=== PATIENT | male | born 1995 | race Caucasian/White ===

== ENCOUNTER 2016-10-18 07:01 | Emergency (ER) | payer OTHER ==
[~2016-10-18] VITALS: Ht 185.4 cm; Wt 90.9 kg
[2016-10-18] MEDS ORDERED: LIDO2.5C15 (07:16)
[2016-10-18] MEDS ORDERED: LORA0.5T11 (07:16)
[2016-10-18] MEDS ORDERED: ONDA8TAB7 (07:16)
[2016-10-18] MEDS ORDERED: PANT40TA2 (07:16)
[2016-10-18] MEDS ORDERED: DEXA4TA (07:16)
[2016-10-18] MEDS ORDERED: OXYC-517 (07:16)
[2016-10-18] MEDS ORDERED: LORA10CA PO (07:16)
[2016-10-18] MEDS ORDERED: ONDANSETRON 4MG/2ML VIAL (J2405) IV ONE (07:30)
[2016-10-18] MEDS ORDERED: MORPHINE 4 MG/ML 1ML SYRINGE IV ONE (07:30)
[2016-10-18] MEDS ORDERED: KETOROLAC 30 MG/ML VIAL (J1885) IV ONE (10:00)
[2016-10-18 11:32] VITALS: BP 116/67
--- NOTE | 2016-10-18 12:14 | REP ---
Bilateral lower extremity deep vein duplex ultrasound: The deep veins demonstrate normal compression, normal Doppler color flow and normal Doppler waveforms with respiration augmentation from the popliteal veins to the common femoral veins bilaterally. Impression: There is no deep vein thrombus on the right or the left. Signed by Natanael Johnson MD 10/18/2016 09:39 A
[2016-10-19] MEDS ORDERED: IBUP-1022 PO (21:23)
[2016-10-19] MEDS ORDERED: MELA5TAB20 PO (21:23)
== END 2016-10-18 11:40 | disposition home or self-care (01) ==
LOC: EDBD 07:01 → M ED 08:26
DX: R20.2 Paresthesia of skin (principal); T37.95XA Adverse effect of unspecified systemic anti-infective and antiparasitic, initial encounter; C41.9 Malignant neoplasm of bone and articular cartilage, unspecified
CPT/HCPCS: 93970; 96374; 96375; 99284; J1885; J2405

== ENCOUNTER 2016-10-19 21:09 | Emergency (ER) | payer OTHER ==
[~2016-10-19] VITALS: Ht 185.4 cm; Wt 90.9 kg
[~2016-10-19 21:09] MED LIST: DEXA4TA; LIDO2.5C15; LORA0.5T11; LORA10CA PO; ONDA8TAB7; OXYC-517; PANT40TA2
[2016-10-19] MEDS ORDERED: MELA5TAB20 PO (21:23)
[2016-10-19] MEDS ORDERED: IBUP-1022 PO (21:23)
[2016-10-19] MEDS ORDERED: NS 1,000 ML IV ONE (21:45)
[2016-10-19 22:11] LABS: ANION GAP 9 MEQ/L (8-16); BLOOD UREA NITROGEN 17 MG/DL (7-18); CALCIUM LEVEL 7.3 MG/DL (8.5-10.1); CARBON DIOXIDE LEVEL 25 MEQ/L (21-32); CHLORIDE LEVEL 99 MEQ/L (98-107); CREATININE FOR GFR 0.78 MG/DL (0.70-1.30); GLUCOSE, FASTING 149 MG/DL (70-105); POTASSIUM SERUM 3.2 MEQ/L (3.5-5.1); SODIUM LEVEL 133 MEQ/L (136-145)
[2016-10-19] MEDS ORDERED: LIDOCAINE 4% CREAM 5GM (LMX4) TOP ONE (22:15)
[2016-10-19 22:27] LABS: ADD MANUAL DIFFER YES; DIFF SLIDE NUMBER 338; MEAN CORPUSCULAR HEMOGLOBIN 30.4 pg (27.0-33.0); MEAN CORPUSCULAR HGB CONC 36.1 g/dl (32.0-36.5); MEAN CORPUSCULAR VOLUME 84.4 fl (80.0-96.0); RED CELL DISTRIBUTION WIDTH 12.8 % (11.5-14.5); WHITE BLOOD COUNT 6.9 K/mm3 (4.0-10.0)
[2016-10-19 22:36] LABS: PLATELET COUNT, AUTOMATED 68 k/mm3 (150-450)
[2016-10-19] MEDS ORDERED: POTASSIUM CHLORIDE 10 MEQ SR TABLET PO ONE (22:45)
[2016-10-19 23:03] LABS: BANDS 12 % (< 11)
[2016-10-19 23:18] LABS: DOHLE BODIES 1+; TOXIC GRANULATION 1+
[2016-10-19] MEDS ORDERED: NS 1,000 ML IV SCH (23:45)
[2016-10-19] MEDS ORDERED: PIPERACILLIN/TAZOBACTAM SOD 3.375 GM in D5W MINI-BAG PLUS 50 ML IV ONE (23:45)
[2016-10-19] MEDS ORDERED: VANCOMYCIN HCL 1,000 MG, VIAL MATE ADAPTER 1 EACH in D5W 250 ML IV ONE (23:45)
[2016-10-20 00:53] VITALS: BP 114/68
--- NOTE | 2016-10-20 07:31 | REP ---
Clinical: Fever . Comparison: None . Findings: The mediastinum and cardiac silhouette are stable and within normal limits for portable technique. Xqhjwn-[id number]-Pbei with tip in the right atrium. The lung ford are clear without acute consolidation, effusion, or pneumothorax. Skeletal structures are intact. Impression: Normal portable chest x-ray Signed by Dominick Horowitz MD 10/20/2016 07:23 A
== END 2016-10-20 01:16 | disposition short-term general hospital (02) ==
LOC: M ED 21:09
DX: R50.9 Fever, unspecified (principal); T82.7XXA Infection and inflammatory reaction due to other cardiac and vascular devices, implants and grafts, initial encounter; C41.9 Malignant neoplasm of bone and articular cartilage, unspecified
CPT/HCPCS: 36415; 71010; 80048; 85025; 87040; 87070; 87077; 87186; 87205; 93041; 94760; 96374; 96375; 99285; J2543; J3370

== ENCOUNTER → 2016-11-04 | Outpatient (REF) | payer OTHER ==
[~2016-11-04] MED LIST changes: +IBUP-1022 PO; +KETO10TAB; +MELA5TAB20 PO; +OMEP20CA3 PO; +STOO100C PO
[2016-11-04 18:43] LABS: ERYTHROCYTE SEDIMENTATION RATE > 140 mm/hr (0-15)
[2016-11-04 18:44] LABS: ADD MORPHOLOGY? YES; BASO # 0.1 K/mm3 (0.0-0.2); BASO % 0.6 % (0.0-1.0); EOS # 0.1 K/mm3 (0.0-0.50); EOS % 0.5 % (0.0-3.0); LARGE UNSTAINED CELL # 0.2 K/mm3 (0.0-0.4); LARGE UNSTAINED CELL % 1.9 % (0.0-4.0); LYMPH # 2.4 K/mm3 (1.5-6.5); LYMPH % 17.2 % (24.0-44.0); MEAN CORPUSCULAR HEMOGLOBIN 28.8 pg (27.0-33.0); MEAN CORPUSCULAR HGB CONC 33.8 g/dl (32.0-36.5); MEAN CORPUSCULAR VOLUME 85.2 fl (80.0-96.0); MONO # 0.6 K/mm3 (0.0-0.8); NEUTROPHILS # 9.4 K/mm3 (1.8-7.7); NEUTROPHILS % 74.8 % (36.0-66.0); PLATELET COUNT, AUTOMATED 467 k/mm3 (150-450); RED CELL DISTRIBUTION WIDTH 16.1 % (11.5-14.5); WHITE BLOOD COUNT 12.6 K/mm3 (4.0-10.0)
[2016-11-04 18:46] LABS: ALBUMIN 2.3 GM/DL (3.2-5.2); ALBUMIN/GLOBULIN RATIO 0.43 (1.00-1.93); ALKALINE PHOSPHATASE 100 U/L (45-117); ALT/SGPT 57 U/L (12-78); ANION GAP 6 MEQ/L (8-16); AST/SGOT 38 U/L (15-37); BILIRUBIN,TOTAL 0.4 MG/DL (0.2-1.0); BLOOD UREA NITROGEN 15 MG/DL (7-18); CARBON DIOXIDE LEVEL 27 MEQ/L (21-32); CHLORIDE LEVEL 99 MEQ/L (98-107); CREATININE FOR GFR 0.85 MG/DL (0.70-1.30); GLUCOSE, FASTING 83 MG/DL (70-105); POTASSIUM SERUM 4.5 MEQ/L (3.5-5.1); SODIUM LEVEL 132 MEQ/L (136-145); TOTAL PROTEIN 7.7 GM/DL (6.4-8.2)
[2016-11-04 19:34] LABS: ANISOCYTOSIS 1+; POLYCHROMASIA 2+
== END ==
LOC: M SHH 17:04
PROVIDERS: ATTEND Internal Medicine
DX: T80.212A Local infection due to central venous catheter, initial encounter (principal)

== ENCOUNTER → 2016-11-08 | Outpatient (REF) | payer OTHER ==
[2016-11-08 16:09] LABS: ALBUMIN 2.2 GM/DL (3.2-5.2); ALKALINE PHOSPHATASE 80 U/L (45-117); ALT/SGPT 38 U/L (12-78); ANION GAP 8 MEQ/L (8-16); AST/SGOT 21 U/L (15-37); BILIRUBIN,TOTAL 0.2 MG/DL (0.2-1.0); BLOOD UREA NITROGEN 20 MG/DL (7-18); CALCIUM LEVEL 8.6 MG/DL (8.5-10.1); CARBON DIOXIDE LEVEL 27 MEQ/L (21-32); CHLORIDE LEVEL 105 MEQ/L (98-107); CREATININE FOR GFR 0.84 MG/DL (0.70-1.30); GLUCOSE, FASTING 89 MG/DL (70-105); SODIUM LEVEL 140 MEQ/L (136-145); TOTAL PROTEIN 6.6 GM/DL (6.4-8.2)
[2016-11-08 16:10] LABS: ADD MORPHOLOGY? YES; BASO % 0.6 % (0.0-1.0); EOS # 0.2 K/mm3 (0.0-0.50); EOS % 2.5 % (0.0-3.0); LARGE UNSTAINED CELL # 0.1 K/mm3 (0.0-0.4); LARGE UNSTAINED CELL % 1.5 % (0.0-4.0); LYMPH # 1.9 K/mm3 (1.5-6.5); LYMPH % 24.2 % (24.0-44.0); MEAN CORPUSCULAR HEMOGLOBIN 28.6 pg (27.0-33.0); MEAN CORPUSCULAR HGB CONC 33.5 g/dl (32.0-36.5); MEAN CORPUSCULAR VOLUME 85.5 fl (80.0-96.0); MONO # 0.4 K/mm3 (0.0-0.8); MONO % 5.3 % (0.0-5.0); NEUTROPHILS # 4.8 K/mm3 (1.8-7.7); PLATELET COUNT, AUTOMATED 364 k/mm3 (150-450); RED CELL DISTRIBUTION WIDTH 16.1 % (11.5-14.5); WHITE BLOOD COUNT 7.3 K/mm3 (4.0-10.0)
[2016-11-08 17:10] LABS: ERYTHROCYTE SEDIMENTATION RATE 126 mm/hr (0-15)
[2016-11-08 17:14] LABS: ANISOCYTOSIS 1+; POLYCHROMASIA 1+
== END ==
LOC: M SHH 15:36
PROVIDERS: ATTEND Internal Medicine Infectious Disease
DX: A49.01 Methicillin susceptible Staphylococcus aureus infection, unspecified site (principal); Z79.2 Long term (current) use of antibiotics

== ENCOUNTER → 2016-11-15 | Outpatient (REF) | payer OTHER ==
[2016-11-15 16:46] LABS: ALBUMIN 2.4 GM/DL (3.2-5.2); ALBUMIN/GLOBULIN RATIO 0.53 (1.00-1.93); ALKALINE PHOSPHATASE 82 U/L (45-117); ALT/SGPT 35 U/L (12-78); ANION GAP 5 MEQ/L (8-16); AST/SGOT 20 U/L (15-37); BILIRUBIN,TOTAL 0.2 MG/DL (0.2-1.0); BLOOD UREA NITROGEN 16 MG/DL (7-18); CALCIUM LEVEL 8.6 MG/DL (8.5-10.1); CARBON DIOXIDE LEVEL 27 MEQ/L (21-32); CHLORIDE LEVEL 105 MEQ/L (98-107); CREATININE FOR GFR 0.69 MG/DL (0.70-1.30); GLUCOSE, FASTING 95 MG/DL (70-105); POTASSIUM SERUM 3.9 MEQ/L (3.5-5.1); SODIUM LEVEL 137 MEQ/L (136-145); TOTAL PROTEIN 6.9 GM/DL (6.4-8.2)
[2016-11-15 17:11] LABS: MEAN CORPUSCULAR HEMOGLOBIN 27.9 pg (27.0-33.0); MEAN CORPUSCULAR HGB CONC 32.4 g/dl (32.0-36.5); MEAN CORPUSCULAR VOLUME 86.1 fl (80.0-96.0); PLATELET COUNT, AUTOMATED 495 k/mm3 (150-450); RED CELL DISTRIBUTION WIDTH 15.1 % (11.5-14.5); WHITE BLOOD COUNT 5.7 K/mm3 (4.0-10.0)
[2016-11-15 19:08] LABS: DIFF SLIDE NUMBER 314
[2016-11-15 19:18] LABS: BANDS 1 % (< 11); BASOPHILS 3 % (0-4); EOSINOPHILS 4 % (0-5)
[2016-11-15 19:19] LABS: ANISOCYTOSIS 1+; TOXIC GRANULATION 2+
[2016-11-15 22:07] LABS: ERYTHROCYTE SEDIMENTATION RATE 95 mm/hr (0-15)
== END ==
LOC: M SHH 16:07
PROVIDERS: ATTEND Internal Medicine Infectious Disease
DX: A49.01 Methicillin susceptible Staphylococcus aureus infection, unspecified site (principal); Z79.2 Long term (current) use of antibiotics; R78.81 Bacteremia

== ENCOUNTER → 2016-11-22 | Outpatient (REF) | payer OTHER ==
[2016-11-22 13:56] LABS: BASO % 1.1 % (0.0-1.0); EOS # 0.1 K/mm3 (0.0-0.50); EOS % 2.7 % (0.0-3.0); LARGE UNSTAINED CELL # 0.1 K/mm3 (0.0-0.4); LARGE UNSTAINED CELL % 2.8 % (0.0-4.0); LYMPH # 1.1 K/mm3 (1.5-6.5); LYMPH % 22.4 % (24.0-44.0); MEAN CORPUSCULAR HEMOGLOBIN 27.3 pg (27.0-33.0); MEAN CORPUSCULAR HGB CONC 32.5 g/dl (32.0-36.5); MONO # 0.4 K/mm3 (0.0-0.8); MONO % 8.1 % (0.0-5.0); PLATELET COUNT, AUTOMATED 472 k/mm3 (150-450); RED CELL DISTRIBUTION WIDTH 14.4 % (11.5-14.5); WHITE BLOOD COUNT 4.7 K/mm3 (4.0-10.0)
[2016-11-22 14:09] LABS: ALBUMIN 2.7 GM/DL (3.2-5.2); ALBUMIN/GLOBULIN RATIO 0.63 (1.00-1.93); ALKALINE PHOSPHATASE 88 U/L (45-117); ALT/SGPT 45 U/L (12-78); ANION GAP 9 MEQ/L (8-16); AST/SGOT 28 U/L (15-37); BILIRUBIN,TOTAL 0.3 MG/DL (0.2-1.0); BLOOD UREA NITROGEN 13 MG/DL (7-18); CALCIUM LEVEL 8.8 MG/DL (8.5-10.1); CARBON DIOXIDE LEVEL 26 MEQ/L (21-32); CHLORIDE LEVEL 107 MEQ/L (98-107); CREATININE FOR GFR 0.81 MG/DL (0.70-1.30); GLUCOSE, FASTING 88 MG/DL (70-105); POTASSIUM SERUM 3.9 MEQ/L (3.5-5.1); SODIUM LEVEL 142 MEQ/L (136-145)
[2016-11-22 14:25] LABS: ERYTHROCYTE SEDIMENTATION RATE 95 mm/hr (0-15)
== END ==
LOC: M SHH 13:48
PROVIDERS: ATTEND Internal Medicine Infectious Disease
DX: A49.01 Methicillin susceptible Staphylococcus aureus infection, unspecified site (principal)

== ENCOUNTER → 2016-11-29 | Outpatient (REF) | payer OTHER ==
[2016-11-29 15:27] LABS: ADD MORPHOLOGY? YES; BASO % 1.1 % (0.0-1.0); EOS # 0.1 K/mm3 (0.0-0.50); EOS % 1.6 % (0.0-3.0); LARGE UNSTAINED CELL # 0.2 K/mm3 (0.0-0.4); LARGE UNSTAINED CELL % 3.8 % (0.0-4.0); LYMPH # 1.2 K/mm3 (1.5-6.5); LYMPH % 29.3 % (24.0-44.0); MEAN CORPUSCULAR HEMOGLOBIN 27.1 pg (27.0-33.0); MEAN CORPUSCULAR HGB CONC 32.6 g/dl (32.0-36.5); MEAN CORPUSCULAR VOLUME 83.2 fl (80.0-96.0); MONO # 0.5 K/mm3 (0.0-0.8); MONO % 11.3 % (0.0-5.0); NEUTROPHILS # 2.2 K/mm3 (1.8-7.7); NEUTROPHILS % 52.9 % (36.0-66.0); PLATELET COUNT, AUTOMATED 429 k/mm3 (150-450); WHITE BLOOD COUNT 4.1 K/mm3 (4.0-10.0)
[2016-11-29 15:42] LABS: ALBUMIN 2.9 GM/DL (3.2-5.2); ALBUMIN/GLOBULIN RATIO 0.71 (1.00-1.93); ALKALINE PHOSPHATASE 96 U/L (45-117); ALT/SGPT 44 U/L (12-78); ANION GAP 6 MEQ/L (8-16); AST/SGOT 25 U/L (15-37); BILIRUBIN,TOTAL 0.5 MG/DL (0.2-1.0); BLOOD UREA NITROGEN 12 MG/DL (7-18); CARBON DIOXIDE LEVEL 29 MEQ/L (21-32); CHLORIDE LEVEL 105 MEQ/L (98-107); CREATININE FOR GFR 0.73 MG/DL (0.70-1.30); GLUCOSE, FASTING 68 MG/DL (70-105); POTASSIUM SERUM 3.8 MEQ/L (3.5-5.1); SODIUM LEVEL 140 MEQ/L (136-145)
[2016-11-29 15:50] LABS: ERYTHROCYTE SEDIMENTATION RATE 67 mm/hr (0-15)
[2016-11-29 16:47] LABS: POIKILOCYTOSIS 1+; TEAR DROP CELLS 2+
[2016-11-29 16:48] LABS: SCHISTOCYTES 1+
== END ==
LOC: M SHH 15:00
PROVIDERS: ATTEND Internal Medicine Infectious Disease
DX: A49.01 Methicillin susceptible Staphylococcus aureus infection, unspecified site (principal); Z79.2 Long term (current) use of antibiotics

== ENCOUNTER 2016-12-16 00:07 | Emergency (ER) | payer OTHER ==
[~2016-12-16] VITALS: Ht 182.9 cm; Wt 90.0 kg
[~2016-12-16 00:07] MED LIST changes: -KETO10TAB; -OMEP20CA3 PO; -STOO100C PO
[2016-12-16] MEDS ORDERED: KETO10TAB (00:18)
[2016-12-16] MEDS ORDERED: STOO100C PO (00:18)
[2016-12-16] MEDS ORDERED: OMEP20CA3 PO (00:21)
[2016-12-16] MEDS ORDERED: ONDANSETRON 4MG/2ML VIAL (J2405) IV ONE (01:00)
[2016-12-16] MEDS ORDERED: ACETAMINOPHEN TAB 650MG DOSE (2X325MG) PO ONE (01:00)
[2016-12-16] MEDS ORDERED: MORPHINE 4 MG/ML 1ML SYRINGE IV PRN (01:00)
[2016-12-16 01:15] LABS: ALBUMIN 2.9 GM/DL (3.2-5.2); ALBUMIN/GLOBULIN RATIO 0.64 (1.00-1.93); ALKALINE PHOSPHATASE 165 U/L (45-117); ALT/SGPT 49 U/L (12-78); ANION GAP 7 MEQ/L (8-16); AST/SGOT 28 U/L (15-37); BASO % 0.4 % (0.0-1.0); BILIRUBIN,DIRECT 0.2 MG/DL (0.0-0.2); BILIRUBIN,TOTAL 0.6 MG/DL (0.2-1.0); BLOOD UREA NITROGEN 10 MG/DL (7-18); CARBON DIOXIDE LEVEL 27 MEQ/L (21-32); CHLORIDE LEVEL 100 MEQ/L (98-107); CREATININE FOR GFR 0.92 MG/DL (0.70-1.30); EOS % 0.1 % (0.0-3.0); GLUCOSE, FASTING 122 MG/DL (70-105); LARGE UNSTAINED CELL # 0.2 K/mm3 (0.0-0.4); LARGE UNSTAINED CELL % 2.3 % (0.0-4.0); LYMPH # 0.8 K/mm3 (1.5-6.5); LYMPH % 8.3 % (24.0-44.0); MEAN CORPUSCULAR HEMOGLOBIN 25.8 pg (27.0-33.0); MEAN CORPUSCULAR HGB CONC 33.3 g/dl (32.0-36.5); MEAN CORPUSCULAR VOLUME 77.4 fl (80.0-96.0); MONO # 0.5 K/mm3 (0.0-0.8); MONO % 5.4 % (0.0-5.0); NEUTROPHILS # 8.3 K/mm3 (1.8-7.7); NEUTROPHILS % 83.5 % (36.0-66.0); PLATELET COUNT, AUTOMATED 259 k/mm3 (150-450); POTASSIUM SERUM 3.1 MEQ/L (3.5-5.1); RED CELL DISTRIBUTION WIDTH 14.6 % (11.5-14.5); SODIUM LEVEL 134 MEQ/L (136-145); TOTAL PROTEIN 7.4 GM/DL (6.4-8.2)
[2016-12-16] MEDS ORDERED: KETOROLAC 30 MG/ML VIAL (J1885) IV ONE (02:15)
[2016-12-16 02:35] VITALS: BP 117/64
[2016-12-16] MEDS ORDERED: NS 1,000 ML IV ONE (03:30)
--- NOTE | 2016-12-16 05:10 | REPUSA ---
CLINICAL HISTORY: Pain. COMMENTS: 3.1 cm nonossifying fibroma of the distal aspect of the femoral diaphysis. The soft tissues are normal. There is no mass or abnormal calcification. There is no fracture. There is no lytic or blastic lesion. 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 Benign incidental chronic finding. No fracture. Thank you for your kind referral of this patient.
[2016-12-16] MEDS ORDERED: OXYCODONE/APAP 5MG/325MG(BULK FOR ED) 1 TABLET PO ONE (06:00)
--- NOTE | 2016-12-16 07:57 | REP ---
Chest x-ray: Two views. History: Systemic inflammatory response syndrome . Comparison study: October 19, 2016 . Findings: The lungs are well inflated and free of infiltrate. The pleural angles are sharp. The heart size is normal. Pulmonary vasculature is not increased. No significant bony abnormality is seen. EKG monitoring electrodes overlie the chest. The Sjezgp-F-Zrmt catheter has been removed since the prior study. Impression: Negative chest x-ray. Signed by Baldomero Tao MD 12/16/2016 07:48 A
--- NOTE | 2016-12-16 08:06 | REP ---
Right TIB-fib series: Four views. History: Pain. Findings: Four views of the right tibia and fibula demonstrate normal bones, joints, and soft tissues. No fracture or other acute bony abnormality. Impression: Negative right TIB-fib series. Signed by Baldomero Tao MD 12/16/2016 08:57 A
== END 2016-12-16 07:02 | disposition home or self-care (01) ==
LOC: EDBD 00:07 → M ED 00:07
DX: M79.604 Pain in right leg (principal)
CPT/HCPCS: 71020; 73552; 73590; 80048; 80076; 81001; 83605; 85025; 87040; 87077; 87086; 87186; 93041; 94760; 96374; 96375; 99285; J1885; J2405

== ENCOUNTER 2017-05-17 20:43 | Emergency (ER) | payer OTHER ==
[2017-05-17] MEDS: LORazepam 2 MG/ML VIAL (J2060) IV (21:13)
[2017-05-17] MEDS: ONDANSETRON 4MG/2ML VIAL (J2405) IV (21:15)
[2017-05-17] MEDS: MORPHINE 4 MG/ML 1ML SYRINGE IV ×2 (21:35→22:02)
[2017-05-17] MEDS: MORPHINE 30 MG TAB **MSIR PO (23:47)
[2017-05-18] MEDS: METHOCARBAMOL 1,000 MG/10 ML VIAL (J2800) IV (00:30)
== END 2017-05-18 02:12 | disposition home or self-care (01) ==
LOC: M ED 05-18 02:12
DX: M54.2 Cervicalgia (principal); C41.2 Malignant neoplasm of vertebral column; F33.9 Major depressive disorder, recurrent, unspecified; Z79.899 Other long term (current) drug therapy
CPT/HCPCS: J2405

== ENCOUNTER → 2017-09-05 | Outpatient (REF) | payer OTHER ==
[2017-09-05 19:25] LABS: BASO # 0.1 10^3/uL (0.0-0.2); BASO % 1.1 % (0.0-1.0); EOS % 0.3 % (0.0-3.0); HEMATOCRIT 25.2 % (42.0-52.0); HEMOGLOBIN 7.7 g/dl (13.5-17.5); IMMATURE GRANULOCYTE % 0.6 % (0-3.0); LYMPH # 1.2 10^3/uL (1.5-6.5); LYMPH % 15.4 % (24.0-44.0); MEAN CORPUSCULAR HEMOGLOBIN 25.3 pg (27.0-33.0); MEAN CORPUSCULAR HGB CONC 30.6 g/dl (32.0-36.5); MEAN CORPUSCULAR VOLUME 82.9 fl (80.0-96.0); MONO # 0.9 10^3/uL (0.0-0.8); MONO % 10.7 % (0.0-5.0); NEUTROPHILS # 5.7 10^3/uL (1.8-7.7); NEUTROPHILS % 71.9 % (36.0-66.0); PLATELET COUNT, AUTOMATED 683 10^3/uL (150-450); RED BLOOD COUNT 3.04 10^6/uL (4.30-6.10); RED CELL DISTRIBUTION WIDTH 16.6 % (11.5-14.5)
[2017-09-05 19:44] LABS: ALBUMIN 2.7 GM/DL (3.2-5.2); ALBUMIN/GLOBULIN RATIO 0.49 (1.00-1.93); ALKALINE PHOSPHATASE 137 U/L (45-117); ALT/SGPT 17 U/L (12-78); ANION GAP 7 MEQ/L (8-16); AST/SGOT 14 U/L (7-37); BILIRUBIN,TOTAL 0.2 MG/DL (0.2-1.0); BLOOD UREA NITROGEN 9 MG/DL (7-18); C REACTIVE PROTEIN QUANTITATIV 6.44 MG/DL (0.00-0.30); CALCIUM LEVEL 8.8 MG/DL (8.5-10.1); CARBON DIOXIDE LEVEL 28 MEQ/L (21-32); CHLORIDE LEVEL 103 MEQ/L (98-107); CREATININE FOR GFR 0.69 MG/DL (0.70-1.30); GLOMERULAR FILTRATION RATE > 60.0 (>60); GLUCOSE, FASTING 79 MG/DL (70-100); POTASSIUM SERUM 4.3 MEQ/L (3.5-5.1); SODIUM LEVEL 138 MEQ/L (136-145); TOTAL PROTEIN 8.2 GM/DL (6.4-8.2)
[2017-09-05 20:13] LABS: ERYTHROCYTE SEDIMENTATION RATE > 140 mm/hr (0-15)
== END ==
LOC: M LAB REF 18:26
DX: M00.9 Pyogenic arthritis, unspecified (principal); A49.01 Methicillin susceptible Staphylococcus aureus infection, unspecified site; Z79.2 Long term (current) use of antibiotics
CPT/HCPCS: 80053

== ENCOUNTER → 2017-09-20 | Outpatient (REF) | payer OTHER ==
[2017-09-20 13:36] LABS: BASO # 0.1 10^3/uL (0.0-0.2); BASO % 0.8 % (0.0-1.0); EOS # 0.3 10^3/uL (0.0-0.50); EOS % 4.4 % (0.0-3.0); HEMATOCRIT 29.4 % (42.0-52.0); HEMOGLOBIN 8.9 g/dl (13.5-17.5); IMMATURE GRANULOCYTE % 0.3 % (0-3.0); LYMPH # 1.5 10^3/uL (1.5-6.5); LYMPH % 24.9 % (24.0-44.0); MEAN CORPUSCULAR HEMOGLOBIN 25.8 pg (27.0-33.0); MEAN CORPUSCULAR HGB CONC 30.3 g/dl (32.0-36.5); MEAN CORPUSCULAR VOLUME 85.2 fl (80.0-96.0); MONO # 0.5 10^3/uL (0.0-0.8); MONO % 7.6 % (0.0-5.0); NEUTROPHILS # 3.7 10^3/uL (1.8-7.7); PLATELET COUNT, AUTOMATED 436 10^3/uL (150-450); RED BLOOD COUNT 3.45 10^6/uL (4.30-6.10); RED CELL DISTRIBUTION WIDTH 16.4 % (11.5-14.5); WHITE BLOOD COUNT 5.9 10^3/uL (4.0-10.0)
[2017-09-20 13:50] LABS: ALBUMIN 3.1 GM/DL (3.2-5.2); ALBUMIN/GLOBULIN RATIO 0.61 (1.00-1.93); ALKALINE PHOSPHATASE 142 U/L (45-117); ALT/SGPT 12 U/L (12-78); ANION GAP 9 MEQ/L (8-16); AST/SGOT 20 U/L (7-37); BILIRUBIN,TOTAL 0.3 MG/DL (0.2-1.0); BLOOD UREA NITROGEN 11 MG/DL (7-18); C REACTIVE PROTEIN QUANTITATIV 3.27 MG/DL (0.00-0.30); CALCIUM LEVEL 9.1 MG/DL (8.5-10.1); CARBON DIOXIDE LEVEL 27 MEQ/L (21-32); CHLORIDE LEVEL 102 MEQ/L (98-107); CREATININE FOR GFR 1.42 MG/DL (0.70-1.30); GLOMERULAR FILTRATION RATE > 60.0 (>60); GLUCOSE, FASTING 77 MG/DL (70-100); SODIUM LEVEL 138 MEQ/L (136-145); TOTAL PROTEIN 8.2 GM/DL (6.4-8.2)
[2017-09-20 14:28] LABS: ERYTHROCYTE SEDIMENTATION RATE 84 mm/hr (0-15)
== END ==
LOC: M LAB REF 13:19
DX: Z00.00 Encounter for general adult medical examination without abnormal findings (principal)
CPT/HCPCS: 80053

== ENCOUNTER → 2017-09-23 | Outpatient (REF) | payer OTHER ==
[2017-09-23 12:49] LABS: ALBUMIN 3.2 GM/DL (3.2-5.2); ALBUMIN/GLOBULIN RATIO 0.63 (1.00-1.93); ALKALINE PHOSPHATASE 139 U/L (45-117); ALT/SGPT 17 U/L (12-78); ANION GAP 7 MEQ/L (8-16); AST/SGOT 16 U/L (7-37); BILIRUBIN,TOTAL 0.3 MG/DL (0.2-1.0); BLOOD UREA NITROGEN 13 MG/DL (7-18); CALCIUM LEVEL 9.5 MG/DL (8.5-10.1); CARBON DIOXIDE LEVEL 29 MEQ/L (21-32); CHLORIDE LEVEL 103 MEQ/L (98-107); CREATININE FOR GFR 0.64 MG/DL (0.70-1.30); GLUCOSE, FASTING 86 MG/DL (70-100); POTASSIUM SERUM 4.2 MEQ/L (3.5-5.1); SODIUM LEVEL 139 MEQ/L (136-145); TOTAL PROTEIN 8.3 GM/DL (6.4-8.2)
[2017-09-23 12:51] LABS: GLOMERULAR FILTRATION RATE > 60.0 (>60)
== END ==
LOC: M SHH 12:09
DX: M00.9 Pyogenic arthritis, unspecified (principal); A49.01 Methicillin susceptible Staphylococcus aureus infection, unspecified site; Z79.2 Long term (current) use of antibiotics

== ENCOUNTER → 2017-09-27 | Outpatient (REF) | payer OTHER ==
[2017-09-27 13:43] LABS: BASO % 0.7 % (0.0-1.0); EOS # 0.2 10^3/uL (0.0-0.50); EOS % 4.8 % (0.0-3.0); HEMATOCRIT 30.7 % (42.0-52.0); HEMOGLOBIN 9.2 g/dl (13.5-17.5); IMMATURE GRANULOCYTE % 0.2 % (0-3.0); LYMPH # 1.1 10^3/uL (1.5-6.5); LYMPH % 27.2 % (24.0-44.0); MEAN CORPUSCULAR HEMOGLOBIN 25.2 pg (27.0-33.0); MEAN CORPUSCULAR VOLUME 84.1 fl (80.0-96.0); MONO # 0.4 10^3/uL (0.0-0.8); MONO % 9.6 % (0.0-5.0); NEUTROPHILS # 2.4 10^3/uL (1.8-7.7); NEUTROPHILS % 57.5 % (36.0-66.0); PLATELET COUNT, AUTOMATED 396 10^3/uL (150-450); RED BLOOD COUNT 3.65 10^6/uL (4.30-6.10); RED CELL DISTRIBUTION WIDTH 15.6 % (11.5-14.5); WHITE BLOOD COUNT 4.2 10^3/uL (4.0-10.0)
[2017-09-27 14:16] LABS: ALBUMIN 3.3 GM/DL (3.2-5.2); ALKALINE PHOSPHATASE 135 U/L (45-117); ALT/SGPT 13 U/L (12-78); ANION GAP 7 MEQ/L (8-16); AST/SGOT 12 U/L (7-37); BILIRUBIN,TOTAL 0.2 MG/DL (0.2-1.0); BLOOD UREA NITROGEN 10 MG/DL (7-18); C REACTIVE PROTEIN QUANTITATIV 2.08 MG/DL (0.00-0.30); CALCIUM LEVEL 9.5 MG/DL (8.5-10.1); CARBON DIOXIDE LEVEL 28 MEQ/L (21-32); CHLORIDE LEVEL 106 MEQ/L (98-107); CREATININE FOR GFR 0.64 MG/DL (0.70-1.30); GLOMERULAR FILTRATION RATE > 60.0 (>60); GLUCOSE, FASTING 85 MG/DL (70-100); POTASSIUM SERUM 3.7 MEQ/L (3.5-5.1); SODIUM LEVEL 141 MEQ/L (136-145)
[2017-09-27 15:27] LABS: ERYTHROCYTE SEDIMENTATION RATE 62 mm/hr (0-15)
== END ==
LOC: M SHH 13:18
DX: Z00.00 Encounter for general adult medical examination without abnormal findings (principal)

== ENCOUNTER 2017-09-29 08:33 | Emergency (ER) | payer OTHER ==
[2017-09-29 11:05] LABS: BASO % 0.6 % (0.0-1.0); EOS # 0.2 10^3/uL (0.0-0.50); EOS % 3.7 % (0.0-3.0); HEMATOCRIT 28.6 % (42.0-52.0); HEMOGLOBIN 8.8 g/dl (13.5-17.5); IMMATURE GRANULOCYTE % 0.2 % (0-3.0); LYMPH # 1.5 10^3/uL (1.5-6.5); LYMPH % 30.3 % (24.0-44.0); MEAN CORPUSCULAR HGB CONC 30.8 g/dl (32.0-36.5); MEAN CORPUSCULAR VOLUME 84.4 fl (80.0-96.0); MONO # 0.4 10^3/uL (0.0-0.8); MONO % 8.1 % (0.0-5.0); NEUTROPHILS # 2.9 10^3/uL (1.8-7.7); NEUTROPHILS % 57.1 % (36.0-66.0); PLATELET COUNT, AUTOMATED 319 10^3/uL (150-450); RED BLOOD COUNT 3.39 10^6/uL (4.30-6.10); RED CELL DISTRIBUTION WIDTH 15.5 % (11.5-14.5); WHITE BLOOD COUNT 5.1 10^3/uL (4.0-10.0)
[2017-09-29 11:38] LABS: ALBUMIN 3.1 GM/DL (3.2-5.2); ALBUMIN/GLOBULIN RATIO 0.74 (1.00-1.93); ALKALINE PHOSPHATASE 127 U/L (45-117); ALT/SGPT 10 U/L (12-78); ANION GAP 6 MEQ/L (8-16); AST/SGOT 11 U/L (7-37); BILIRUBIN,DIRECT < 0.1 MG/DL (0.0-0.2); BILIRUBIN,TOTAL 0.2 MG/DL (0.2-1.0); BLOOD UREA NITROGEN 13 MG/DL (7-18); CALCIUM LEVEL 8.9 MG/DL (8.5-10.1); CARBON DIOXIDE LEVEL 30 MEQ/L (21-32); CHLORIDE LEVEL 105 MEQ/L (98-107); CREATININE FOR GFR 0.79 MG/DL (0.70-1.30); GLOMERULAR FILTRATION RATE > 60.0 (>60); GLUCOSE, FASTING 85 MG/DL (70-100); POTASSIUM SERUM 3.9 MEQ/L (3.5-5.1); SODIUM LEVEL 141 MEQ/L (136-145); TOTAL PROTEIN 7.3 GM/DL (6.4-8.2)
[2017-09-29 11:54] LABS: C REACTIVE PROTEIN QUANTITATIV 1.11 MG/DL (0.00-0.30)
[2017-09-29] MEDS: MORPHINE 4 MG/ML 1ML VIAL/SYRINGE (J2270) IV ×3 (12:06→16:43)
[2017-09-29 12:31] LABS: ERYTHROCYTE SEDIMENTATION RATE 59 mm/hr (0-15)
== END 2017-09-29 16:52 | disposition short-term general hospital (02) ==
LOC: M ED 08:33
DX: M25.552 Pain in left hip (principal); M25.562 Pain in left knee; Z85.831 Personal history of malignant neoplasm of soft tissue; Z79.899 Other long term (current) drug therapy
CPT/HCPCS: J2270

== ENCOUNTER → 2017-12-06 | Outpatient (CLI) | payer OTHER ==
[2017-12-06 11:32] LABS: BASO % 0.2 % (0.0-1.0); EOS # 0.1 10^3/uL (0.0-0.50); EOS % 1.9 % (0.0-3.0); HEMATOCRIT 37.6 % (42.0-52.0); HEMOGLOBIN 12.3 g/dl (13.5-17.5); IMMATURE GRANULOCYTE % 0.2 % (0-3.0); LYMPH # 1.2 10^3/uL (1.5-6.5); LYMPH % 26.9 % (24.0-44.0); MEAN CORPUSCULAR HEMOGLOBIN 26.5 pg (27.0-33.0); MEAN CORPUSCULAR HGB CONC 32.7 g/dl (32.0-36.5); MEAN CORPUSCULAR VOLUME 80.9 fl (80.0-96.0); MONO # 0.5 10^3/uL (0.0-0.8); NEUTROPHILS # 2.5 10^3/uL (1.8-7.7); NEUTROPHILS % 58.8 % (36.0-66.0); PLATELET COUNT, AUTOMATED 368 10^3/uL (150-450); RED BLOOD COUNT 4.65 10^6/uL (4.30-6.10); RED CELL DISTRIBUTION WIDTH 14.3 % (11.5-14.5); WHITE BLOOD COUNT 4.3 10^3/uL (4.0-10.0)
[2017-12-06 11:50] LABS: ALBUMIN 3.6 GM/DL (3.2-5.2); ALBUMIN/GLOBULIN RATIO 0.88 (1.00-1.93); ALKALINE PHOSPHATASE 160 U/L (45-117); ALT/SGPT 27 U/L (12-78); ANION GAP 5 MEQ/L (8-16); AST/SGOT 17 U/L (7-37); BILIRUBIN,TOTAL 0.7 MG/DL (0.2-1.0); BLOOD UREA NITROGEN 16 MG/DL (7-18); C REACTIVE PROTEIN QUANTITATIV 5.17 MG/DL (0.00-0.30); CALCIUM LEVEL 9.3 MG/DL (8.5-10.1); CARBON DIOXIDE LEVEL 31 MEQ/L (21-32); CHLORIDE LEVEL 105 MEQ/L (98-107); CREATININE FOR GFR 0.85 MG/DL (0.70-1.30); GLOMERULAR FILTRATION RATE > 60.0 (>60); GLUCOSE, FASTING 77 MG/DL (70-100); POTASSIUM SERUM 3.6 MEQ/L (3.5-5.1); SODIUM LEVEL 141 MEQ/L (136-145); TOTAL PROTEIN 7.7 GM/DL (6.4-8.2)
[2017-12-06 12:06] LABS: ERYTHROCYTE SEDIMENTATION RATE 33 mm/hr (0-15)
== END ==
LOC: M LAB 10:59
DX: A49.01 Methicillin susceptible Staphylococcus aureus infection, unspecified site (principal); M00.9 Pyogenic arthritis, unspecified

== ENCOUNTER 2018-02-09 10:55 | Emergency (ER) | payer OTHER ==
[2018-02-09] MEDS: NS 1,000 ML IV (12:01)
[2018-02-09] MEDS: fentaNYL 100 MCG/2 ML INJECTION (J3010) IV (12:01)
[2018-02-09 12:21] LABS: EOS % 4.3 % (0.0-3.0); HEMATOCRIT 29.4 % (42.0-52.0); LYMPH # 0.4 10^3/uL (1.5-6.5); LYMPH % 59.4 % (24.0-44.0); MEAN CORPUSCULAR HEMOGLOBIN 27.2 pg (27.0-33.0); MEAN CORPUSCULAR VOLUME 79.9 fl (80.0-96.0); MONO # 0.1 10^3/uL (0.0-0.8); NEUTROPHILS % 23.3 % (36.0-66.0); RED BLOOD COUNT 3.68 10^6/uL (4.30-6.10); RED CELL DISTRIBUTION WIDTH 12.4 % (11.5-14.5)
[2018-02-09 12:36] LABS: NEUTROPHILS # 0.2 10^3/uL (1.8-7.7); PLATELET COUNT, AUTOMATED 70 10^3/uL (150-450); POS COUNT POS FLAG; POSITIVE DIFF POS FLAG; POSITIVE MORPH POS FLAG; WHITE BLOOD COUNT 0.7 10^3/uL (4.0-10.0)
[2018-02-09 12:37] LABS: IMMATURE PLATELET FRACTION % 4.6 % (0.0-10.9)
[2018-02-09 12:46] LABS: ANION GAP 7 MEQ/L (8-16); BLOOD UREA NITROGEN 22 MG/DL (7-18); CALCIUM LEVEL 8.4 MG/DL (8.5-10.1); CARBON DIOXIDE LEVEL 27 MEQ/L (21-32); CHLORIDE LEVEL 107 MEQ/L (98-107); CREATININE FOR GFR 0.61 MG/DL (0.70-1.30); GLOMERULAR FILTRATION RATE > 60.0 (>60); GLUCOSE, FASTING 100 MG/DL (70-100); POTASSIUM SERUM 3.9 MEQ/L (3.5-5.1); SODIUM LEVEL 141 MEQ/L (136-145)
== END 2018-02-09 13:57 | disposition home or self-care (01) ==
LOC: M ED 10:55
DX: M25.551 Pain in right hip (principal); M25.552 Pain in left hip; M16.0 Bilateral primary osteoarthritis of hip; K64.9 Unspecified hemorrhoids; Z85.830 Personal history of malignant neoplasm of bone; Z98.890 Other specified postprocedural states; Z91.048 Other nonmedicinal substance allergy status; Z79.899 Other long term (current) drug therapy; Z92.21 Personal history of antineoplastic chemotherapy
CPT/HCPCS: J3010

== ENCOUNTER → 2019-10-02 | Outpatient (REF) | payer BC ==
[~2019-10-02] MED LIST changes: +ATIV1TAB10 PO; +BACL1TAB9 PO; +CEFAD50CA PO; +CLAR10CA3 PO; +DILA8TAB5 PO; +DULO30CA9 PO; +IBUP80TA PO; +KETO10TAB; +KETO10TAB PO; -LORA0.5T11; +LORA0.5T5; +MM S100C PO; +MORP15TA2 PO; +NEUR300C PO; +OMEP1CAP73 PO; +ONDA8TAB10; -ONDA8TAB7; +OXYC1SOL3 PO; +OXYC1TAB23 PO; -PANT40TA2; +PANT40TA3; +PANT40TA3 PO; +PARO20TA3 PO; +PARO30TA65 PO; +PERC5TAB12 PO; +PROBCAP14 PO; +TIZA4CAP PO; +TRAM50TA2 PO; +TYLE325T5 PO
[2019-10-02 13:17] LABS: BASO % 0.5 % (0.0-1.0); EOS # 0.1 10^3/uL (0.0-0.5); EOS % 1.8 % (0.0-3.0); HEMATOCRIT 42.9 % (42.0-52.0); HEMOGLOBIN 14.7 g/dl (13.5-17.5); LYMPH # 1.4 10^3/uL (1.5-5.0); LYMPH % 32.8 % (24.0-44.0); MEAN CORPUSCULAR HEMOGLOBIN 28.7 pg (27.0-33.0); MEAN CORPUSCULAR HGB CONC 34.3 g/dl (32.0-36.5); MEAN CORPUSCULAR VOLUME 83.8 fl (80.0-96.0); MONO # 0.4 10^3/uL (0.0-0.8); MONO % 8.3 % (0.0-5.0); NEUTROPHILS # 2.5 10^3/uL (1.5-8.5); NEUTROPHILS % 56.4 % (36.0-66.0); PLATELET COUNT, AUTOMATED 304 10^3/uL (150-450); RED BLOOD COUNT 5.12 10^6/uL (4.30-6.10); WHITE BLOOD COUNT 4.4 10^3/uL (4.0-10.0)
[2019-10-02 13:45] LABS: ALBUMIN 3.9 GM/DL (3.2-5.2); ALT/SGPT 31 U/L (12-78); BILIRUBIN,TOTAL 0.8 MG/DL (0.2-1.0); BLOOD UREA NITROGEN 19 MG/DL (7-18); CALCIUM LEVEL 9.1 MG/DL (8.5-10.1); CARBON DIOXIDE LEVEL 26 MEQ/L (21-32); CHLORIDE LEVEL 108 MEQ/L (98-107); CREATININE FOR GFR 0.73 MG/DL (0.70-1.30); GLOMERULAR FILTRATION RATE > 60.0 (>60); GLUCOSE, FASTING 97 MG/DL (70-100); POTASSIUM SERUM 4.1 MEQ/L (3.5-5.1); SODIUM LEVEL 140 MEQ/L (136-145); TOTAL PROTEIN 7.2 GM/DL (6.4-8.2)
== END ==
LOC: M LABDRWAD 12:35
PROVIDERS: ATTEND Physician Assistant Medical
DX: C41.2 Malignant neoplasm of vertebral column (principal)

== ENCOUNTER → 2020-03-25 | Outpatient (CLI) | payer BC ==
[~2020-03-25] MED LIST changes: +PANT40TA29; +PANT40TA29 PO; -PANT40TA3; -PANT40TA3 PO
[2020-03-25 16:30] LABS: BASO % 0.4 % (0.0-1.0); EOS # 0.1 10^3/uL (0.0-0.5); EOS % 1.8 % (0.0-3.0); HEMATOCRIT 40.8 % (42.0-52.0); HEMOGLOBIN 13.5 g/dl (13.5-17.5); LYMPH % 36.2 % (24.0-44.0); MEAN CORPUSCULAR HGB CONC 33.1 g/dl (32.0-36.5); MEAN CORPUSCULAR VOLUME 84.6 fl (80.0-96.0); MONO # 0.5 10^3/uL (0.0-0.8); MONO % 9.1 % (0.0-5.0); NEUTROPHILS # 2.9 10^3/uL (1.5-8.5); NEUTROPHILS % 52.3 % (36.0-66.0); PLATELET COUNT, AUTOMATED 271 10^3/uL (150-450); RED BLOOD COUNT 4.82 10^6/uL (4.30-6.10); WHITE BLOOD COUNT 5.5 10^3/uL (4.0-10.0)
[2020-03-25 16:49] LABS: ALBUMIN 3.9 GM/DL (3.2-5.2); ALT/SGPT 18 U/L (12-78); BILIRUBIN,TOTAL 0.8 MG/DL (0.2-1.0); BLOOD UREA NITROGEN 17 MG/DL (7-18); CALCIUM LEVEL 9.2 MG/DL (8.5-10.1); CARBON DIOXIDE LEVEL 26 MEQ/L (21-32); CHLORIDE LEVEL 111 MEQ/L (98-107); CREATININE FOR GFR 0.91 MG/DL (0.70-1.30); GLOMERULAR FILTRATION RATE > 60.0 (>60); GLUCOSE, FASTING 91 MG/DL (70-100); POTASSIUM SERUM 3.8 MEQ/L (3.5-5.1); SODIUM LEVEL 142 MEQ/L (136-145); TOTAL PROTEIN 7.1 GM/DL (6.4-8.2)
== END ==
LOC: M LAB 15:50
PROVIDERS: ATTEND Internal Medicine Hematology & Oncology
DX: Z85.830 Personal history of malignant neoplasm of bone (principal)

== ENCOUNTER 2020-05-11 20:00 | Emergency (ER) | payer BC ==
[~2020-05-11] VITALS: Ht 188 cm; Wt 100.1 kg
[~2020-05-11 20:00] MED LIST changes: +CEFA500C2 PO; -CEFAD50CA PO
[2020-05-11 20:01] VITALS: BP 145/94
--- OUTSIDE RECORDS SUMMARY | 2020-05-11 20:09 | CCD | Summary of Care ---
Author Author [facility] Organization [facility] Address Unknown Phone Unavailable Care Team Providers Care E Commerce Manager Name Role Phone Destin Sargent MD PCP Reason for Referral * Diagnostic Radiology (Routine) Referred By Contact Referred To Contact Status Reason Specialty Diagnoses / Procedures Salbador Rodriguez MD [address] [place] [address] Email: [email or web address] Open Radiology Diagnoses Whiteside's sarcoma P rocedures CT Soft Tissue Neck with Contrast * Diagnostic Radiology (Routine) Referred By Contact Referred To Contact Status Reason Specialty Diagnoses / Procedures Salbador Rodriguez MD [address] [place] [address] Email: [email or web address] Open Radiology Diagnoses Whiteside's sarcoma P rocedures CT Cervical Spine with Contrast Reason for Visit * Reason Comments Follow-up Encounter Details Care Team Description Date Type Department Salbador Rodriguez MD [address] [place] [address] [phone] Whiteside's sarcoma (Primary Dx) 03/27/2020 Telemedicine Hematology Oncology [address] [place] [address] Allergies Comments Active Allergy Reactions Severity Noted Date Avascular necrosis Corticosteroids 08/18/2017 Pulled skin off Adhesive Tape Other (See 02/28/2017 Comments), Itching documented as of this encounter (statuses as of 04/08/2020) Medications End Date Status Medication Sig Dispensed Refills Start Date Active Ibuprofen 800 MG Oral Take 800 mg 0 03/12/20 2 Tablet (MOTRIN) by mouth 0 every 8 (eight) hours as needed For Pain documented as of this encounter (statuses as of 04/08/2020) Active Problems Problem Noted Date History of left hip replacement 10/17/2018 AVN of femur 07/10/2018 Admission for chemotherapy 03/17/2018 Avascular necrosis of bones of both hips 09/29/2017 Normocytic anemia 09/29/2017 GERD (gastroesophageal reflux disease) 09/29/2017 Hip pain, chronic, left 09/07/2017 Acute hip pain, left 09/07/2017 Skin ulcer of buttock, limited to breakdown of skin 08/26/2017 Overview: Moisture/friction related, inner buttoc ks Staphylococcal arthritis of left hip 08/21/2017 Overview: Antibiotics started 08/20/17 Hypokalemia due to inadequate potassium intake 08/21 Protein-calorie malnutrition, moderate 08/19/2017 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 Has received 1 cycle of chemotherapy. Therapy has been delayed by MSSA bacteremia/port infecti on. Admitted with fever/bilateral lower leg pain. PCS consulted to assist with emotional support. 03/16/2017- evaluated in outpatient cli augustin. Certified for medical marijuana. Plans to complete HCP at nex t visit. 05/04/2017- executed HCP, designating hi s mother. Whiteside's sarcoma of vertebra 10/08/2016 Cancer Staging: Clinical: Stage IB (T2, N0, M0, GX) - Signed by Amador Marques MD on 06/17/2017 Epidural mass 09/29/2016 Neck mass 09/28/2016 Cervical lesion 09/28/2016 documented as of this encounter (statuses as of 04/08/2020) Resolved Problems Problem Noted Date Resolved Date Malnutrition of moderate degree 09/08/20172017 Overview: See nutrition note Pain of left hip joint 08/18/2017 04/07/2018 Pain 08/15/2017 08/21/2017 Neutropenia 07/17/2017 02/23/2018 Skin bulla 12/31/2016 01/10/2017 Overview: Right buttock Encounter for care related to vascular access port 017 01/13/2017 Overview: History of port site to right chest wal l Bacteremia due to Gram-positive bacteria 12/17/2016 06/17/2017 Sepsis 12/16/2016 12/17/2016 Overview: Bacteremia 12/16/2016 12/17/2016 Whiteside's sarcoma 12/01/2016 01/13/2017 Anemia 11/09/2016 01/13/2017 Staphylococcus aureus bacteremia with sepsis 10/21/2016 06/17/2017 Myopathy 10/21/2016 01/13/2017 Infected venous access port 10/20/2016 01/13/2017 Sepsis 10/20/2016 10/21/2016 Port or reservoir infection 10/20/2016 01/13/2017 Bilateral leg weakness 10/20/2016 01/13/2017 Fever 01/13/2017 Pyogenic arthritis of right hip 06/17/2017 Blood poisoning 01/13/2017 Chemotherapy-induced neutropenia 04/07/2018 documented as of this encounter (statuses as of 04/08/2020) Social History Date Tobacco Use Types Packs/Day Years Used Never Smoker Smokeless Tobacco: Never Used Drinks/Week oz/Week Comments Alcohol Use No Sex Assigned at Date Recorded Not on file Date Recorded COVID-19 Exposure Response 03/18/2020 12:39 PM EST In the last month, have you been in contact with No / Unsure someone who was confirmed or suspected to have Coronavirus / COVID-19? documented as of this encounter Last Filed Vital Signs Not on filedocumented in this encounter Progress Notes * Salbador Rodriguez MD - 03/27/2020 3:00 PM EST Subjective: Patient ID: Migue Atkinson is a 24 y.o. male with a history of Ewings sarcoma . He was deemed inoperable because of the location of his tumor, which was in h is cervical spine. He was treated with neoadjuvant chemotherapy with alternatin g cycles of VAC vs IE. This was ultimately followed by external beam radiation to his cervical spine completed on 11/14/17 followed by 3 cycles of adjuvant VAC/ IE completed on 04/12/18. He has had no evidence of recurrence since then. This is a telephonic visit which was performed without the use of video vanessa hnology due to patient inability to connect with video. The patient was informed of the risks including security breach, technological failure, inability to per form a physical exam which could delay or prevent an accurate diagnosis, and pot ential complications from treatment decisions rendered over a [facility]. The patient understands and consented to the use of a telephonic visit/teleph one call. Time spent on the telephonic visit today: 22 minutes The patient feels well. No neck or other bone pain. Good energy. CT scans of his neck and cervical spine on 03/18/20 show no evidence of recurrence. HPI Migue has a past medical history of Blood transfusion without reported diagnos is, Encounter for care related to vascular access port (12/28/2016), Whiteside's sarco ma of vertebra (10/08/2016), MRSA (methicillin resistant staph aureus) culture po sitive, Pyogenic arthritis of right hip, and Skin bulla (12/31/2016). Migue has Neck mass; Cervical lesion; Epidural mass; Whiteside's sarcoma of vertebr a; Encounter for palliative care; Left hip pain; Whiteside's sarcoma of vertebra; Pr otein-calorie malnutrition, moderate; Staphylococcal arthritis of left hip; Hypo kalemia due to inadequate potassium intake; Skin ulcer of buttock, limited to br eakdown of skin; Hip pain, chronic, left; Acute hip pain, left; Avascular necros is of bones of both hips; Normocytic anemia; GERD (gastroesophageal reflux disea se); Admission for chemotherapy; AVN of femur; and History of left hip replaceme nt on their problem list. Migue has a past surgical history that includes Bone marrow biopsy; pr incis/d rain pelvis/hip,deep abscess (Right, 12/23/2016); pr total hip arthroplasty (Righ t, 07/10/2018); Total hip arthroplasty (Left, 10/05/2018); and Total hip arthropl asty (Right, 06/2018). His family history includes Cancer in his maternal grandmother; Diabetes in his maternal grandfather; Heart disease in his maternal grandmother; Hyperlipidemia in his maternal grandfather; No Known Problems in his father and mother. Migue reports that he has never smoked. He has never used smokeless tobacco. H e reports that he does not drink alcohol or use drugs. Migue has a current medication list which includes the following prescription(s ): ibuprofen. Current Outpatient Medications on File Prior to Visit Medication Sig Dispense Refill Ibuprofen 800 MG Oral Tablet (MOTRIN) Take 800 mg by mouth every 8 (eight ) hours as needed For Pain No current facility-administered medications on file prior to visit. Migue is allergic to corticosteroids and tape [adhesive tape]. Review of Systems Constitutional: Negative. HENT: Negative. Eyes: Negative. Respiratory: Negative. Cardiovascular: Negative. Gastrointestinal: Negative. Endocrine: Negative. Genitourinary: Negative. Musculoskeletal: Negative. Skin: Negative. Neurological: Negative. Hematological: Negative. Psychiatric/Behavioral: Negative. All other systems reviewed and are negative. Objective: There were no vitals taken for this visit. Physical Exam No physical exam was performed. Assessment: Patient with a history of Ewings sarcoma, which remains in remission following c hemoradiation. We will continue to monitor. Plan: RTC 09/25/20 for telephonic visit with CT of the neck and cervical spine 1 week pr ior. documented in this encounter Plan of Treatment Care Team Description Date Type Specialty Salbador Rodriguez MD [address] [place] [address] [phone] 09/25/2020 Telemedicine Hematology and Onco Natanael Estevez PA [address] [place], [place] [id number] 10/31/2020 Office Visit Orthopedic Surgery Order Schedule Name Type Priority Associated Diag noses Expected: 03/27/2020, Expires: 2 CT Cervical Spine with Imaging Routine Whiteside's sarcoma Contrast Expected: 03/27/2020, Expires: 2 CT Soft Tissue Neck with Imaging Routine Whiteside 's sarcoma Contrast Health Maintenance Due Date Last Done Comments MMR Vaccines (1 of 1 - 1997 Standard series) Varicella Vaccines (1 of 1997 2 - 2-dose childhood series) Pneumococcal Vaccine: 2002 Pediatrics (0 to 5 Years) and At-Risk Patients (6 to 64 Years) (1 of 3 - PCV13) DTaP,Tdap,and Td Vaccines 2003 (1 - Tdap) HIV Screening 2009 Influenza Vaccine 01/24/2020 Pneumococcal Vaccine: 65+ 2061 Years (1 of 1 - PPSV23) HIB Vaccines Aged Out No longer eligible based on patient's age to complete this topic Hepatitis A Vaccines Aged Out No longer eligibl e based on patient's age to complete this topic Hepatitis B Vaccines Aged Out No longer eligibl e based on patient's age to complete this topic IPV Vaccines Aged Out No longer eligible based on patient's age to complete this topic documented as of this encounter Implants Device Identifier Shelf Expiration Date Model / Serial / L ot Implanted Type Area Manufactur er 03/06/2021 21-8470-24 / / [id number] Port- Power Pac-10fr Dl Lpronew Right: Chest LERMA S Intro - [id number] Wall MEDICAL Implanted: Qty: 1 on 10/05/2016 by Arie Cannon MD at [facility] 03/14/2023 702-04-58F / / [id number] Shell Atab C-Hole 58f Trident - Right: Hip STRYK ER [id number] CMF Implanted: Qty: 1 on 07/10/2018 by DIVISION Jhonathan Bauman MD at [facility] 05/08/2023 [id number] / / [id number] Screw Hex Low Prof 6.5x40mm. - Right: Hip STRYKE R [id number] CMF Implanted: Qty: 1 on 07/10/2018 by DIVISION Jhonathan Bauman MD at [facility] 05/07/2023 [id number] / / [id number] Insert Poly Trdnt 36mm 0deg - Right: Hip MILES [id number] CMF Implanted: Qty: 1 on 07/10/2018 by Jhonathan Cartwright MD at [facility] 08/20/2020 [id number] / / [id number] Spacer Distal Cement 11mm - Right: Hip MILES [id number] CMF Implanted: Qty: 1 on 07/10/2018 by Jhonathan Cartwright MD at [facility] 12/14/2021 [id number] / / [id number] Hip Stem Accolade 127 Dg Nk #7. - Right: Hip STR YKER [id number] CMF Implanted: Qty: 1 on 07/10/2018 by DIVISION Jhonathan Bauman MD at [facility] 08/23/2019 [id number] / / [id number] Cement Bone Simplexw/Tobra - Right: Hip MILES [id number] CMF Implanted: Qty: 2 on 07/10/2018 by DIVISION Jhonathan Bauman MD at [facility] documented as of this encounter Results Not on filedocumented in this encounter Visit Diagnoses Diagnosis Whiteside's sarcoma - Primary Malignant neoplasm of bone and articula r cartilage, site unspecified documented in this encounter
--- OUTSIDE RECORDS SUMMARY | 2020-05-11 20:09 | CCD | Summary of Care ---
Author Author [facility] Organization [facility] Address Unknown Phone Unavailable Care Team Providers Care Link Trainer Maintenance Worker Name Role Phone Destin Sargent MD PCP Reason for Referral * Diagnostic Radiology (Routine) Referred By Contact Referred To Contact Status Reason Specialty Diagnoses / Procedures Salbador Rodriguez MD [address] [place] [address] Email: [email or web address] Authorized Radiology Diagnoses History of Whiteside's sarcoma P rocedures CT Cervical Spine with Contrast Reason for Visit * Diagnostic Radiology (Routine) Referred By Contact Referred To Contact Status Reason Specialty Diagnoses / Procedures Salbador Rodriguez MD [address] [place] [address] Email: [email or web address] Authorized Radiology Diagnoses History of Whiteside's sarcoma P rocedures CT Cervical Spine with Contrast Encounter Details Care Team Description Date Type Department History of Whiteside's sarcoma 03/18/[facility] [address] SCAN Encounter [address] [address] Allergies Comments Active Allergy Reactions Severity Noted Date Avascular necrosis Corticosteroids 08/18/2017 Pulled skin off Adhesive Tape Other (See 02/28/2017 Comments), Itching documented as of this encounter (statuses as of 03/19/2020) Medications No known medicationsdocumented as of this encounter (statuses as of 03/19/2020) Active Problems Problem Noted Date History of [...] as of this encounter (statuses as of 03/19/2020) Resolved Problems Problem Noted Date Resolved Date [...] as of this encounter (statuses as of 03/19/2020) Social History Date Tobacco Use Types Packs/Day [...] Signs Not on filedocumented in this encounter Plan of Treatment Care Team Description Date Type Specialty Salbador Rodriguez MD [address] [place] [address] [phone] 03/27/2020 Telemedicine Hematology and Onco perezy Natanael Montes De Oca PA [address] [place], [place] [id number] 10/31/2020 Office Visit Orthopedic Surgery Health Maintenance Due Date Last Done Comments [...] Area Manufactur er 03/06/2021 21-8470-24 / / [id number] Port- Power Pac-10fr Dl Lpronew Right: Chest LERMA S Intro - [id number] Wall MEDICAL Implanted: Qty: 1 on 10/05/2016 by Arie Cannon MD at [facility] 03/14/2023 702-04-58F / / [id number] Shell Atab C-Hole 58f Trident - Right: Hip STRYK ER [id number] CORPORATIO Implanted: Qty: 1 on 07/10/2018 by Jhonathan Vale MD at [facility] 05/08/2023 [id number] / / [id number] Screw Hex Low Prof 6.5x40mm. - Right: Hip STRYKE R [id number] CORPORATIO Implanted: Qty: 1 on 07/10/2018 by Jhonathan Vale MD at [facility] 05/07/2023 623-00-36F / / [id number] Insert Poly Trdnt 36mm 0deg - Right: Hip MILES [id number] CORPORATIO Implanted: Qty: 1 on 07/10/2018 by Jhonathan Vale MD at [facility] 08/20/2020 [id number] / / [id number] Spacer Distal Cement 11mm - Right: Hip MILES [id number] CORPORATIO Implanted: Qty: 1 on 07/10/2018 by Jhonathan Vale MD at [facility] 12/14/2021 [id number] / / [id number] Hip Stem Accolade 127 Dg Nk #7. - Right: Hip STR YKER [id number] CORPORATIO Implanted: Qty: 1 on 07/10/2018 by Jhonathan Vale MD at [facility] 08/23/2019 [id number] / / [id number] Cement Bone Simplexw/Tobra - Right: Hip MILES [id number] CORPORATIO Implanted: Qty: 2 on 07/10/2018 by Jhonathan Vale MD at [facility] documented as of this encounter Procedures Comments Procedure Name Priority Date/Time Associated Diag nosis CT CERVICAL SPINE WITH Routine 03/18/2020 History of Whiteside's CONTRAST 09403 1:55 PM EST sarcoma documented in this encounter Results * CT Cervical Spine with Contrast (03/18/2020 1:55 PM EST) Specimen Impressions Performed At IMPRESSION: [facility] No significant change in sclerotic gonzalez ges within the C5 vertebral body. There are no new osseous lesions shown. Narrative Performed At EXAMINATION: CT CERVICAL SPINE WITH CONTRAST [address] [facility] RADIOLOGY CLINICAL INDICATION: History of Whiteside sarcoma. TECHNIQUE: Axial CT images of the cervi deborah spine were obtained following intravenous administration 100 cc of Om nipaque 300. Reformatted images in coronal and sagi ttal planes were then acquired using the axial source data. Automated dose lowering techniques and /or adjustment according to patient size were utilized for this examination. COMPARISON: CT of the cervical spine wi th contrast dated 09/27/[address] of the soft tissues of neck dated 03/21/2019. FINDINGS: Sclerosis within the C5 verte bral body is not significantly changed relative to the comparison studies date d 09/27/2019 and 03/21/2019. There are no new osteoblastic or osteolytic lesions within the cervical spine. There is no abnormal enhancement. There are no acut e fractures. There is no spondylolisthesis. The vertebral body and disc space heig hts are normal. There is no prevertebral soft tissue s welling. Procedure Note Interface, Received Via [id number] System - 03/18/2020 2:32 PM EST EXAMINATION: CT CERVICAL SPINE WITH CONTRAST [address]1492 CLINICAL INDICATION: History of Whiteside sarcoma. TECHNIQUE: Axial CT images of the cervical spine were obtained following intravenous administration 100 cc of Omnipaque 300. Reformatted images in coronal and sagittal planes were then acquired using the axial source data. Automated dose lowering techniques and/or adjustment according to patient size were utilized for this examination. COMPARISON: CT of the cervical spine with contrast dated 09/27/[address] of the soft tissues of neck dated 03/21/2019. FINDINGS: Sclerosis within the C5 vertebral body is not significantly changed relative to the comparison studies dated 09/27/2019 and 03/21/2019. There are no new osteoblastic or osteolytic lesions within the cervical spine. There is no abnormal enhancement. There are no acute fractures. There is no spondylolisthesis. The vertebral body and disc space heights are normal. There is no prevertebral soft tissue swelling. IMPRESSION: No significant change in sclerotic changes within the C5 vertebral body. There are no new osseous lesions shown. Performing Organization Address City/State/Zipcode Ph one Number [facility] [address] [place] [address] documented in this encounter Visit Diagnoses Diagnosis History of Whiteside's sarcoma Personal history of malignant neoplasm of bone documented in this encounter
--- OUTSIDE RECORDS SUMMARY | 2020-05-11 20:09 | CCD ---
Author Author [facility] Organization [facility] Address Unknown Phone Unavailable Care Team Providers Care Captain/Airline Pilot Name Role Phone Jordi Montes De Oca Unavailable Unavailable BirklinJordi Unavailable Unavailable BirklinJordi Unavailable Unavailable BirklinJordi Unavailable Unavailable BirklinJordi Unavailable Unavailable BirklinJordi Unavailable Unavailable BirklinJordi Unavailable Unavailable BirklinJordi Unavailable Unavailable BirklinJordi Unavailable Unavailable BirklinJordi Unavailable Unavailable BirklinJordi Unavailable Unavailable BirklinJordi Unavailable Unavailable BirklinJordi Unavailable Unavailable BirklinJordi Unavailable Unavailable BirklinJordi Unavailable Unavailable BirklinJordi Unavailable Unavailable BirklinJordi Unavailable Unavailable BirklinJordi Unavailable Unavailable BirklinJordi Unavailable Unavailable BirklinJordi Unavailable Unavailable BirklinJordi Unavailable Unavailable BirklinJordi Unavailable Unavailable BirklinJordi Unavailable Unavailable Birklin, Jordi Natanael PA Unavailable Unavailable BirklinJordi PA Unavailable Unavailable BirklinJordi PA Unavailable Unavailable BirklinJordi PA Unavailable Unavailable BirklinJordi PA Unavailable Unavailable Lorri TRAN MD Unavailable Unavailable Lorri TRAN MD Unavailable Unavailable Lorri TRAN MD Unavailable Unavailable Lorri TRAN MD Unavailable Unavailable Lorri TRAN MD Unavailable Unavailable Lorri TRAN MD Unavailable Unavailable Lorri TRAN MD Unavailable Unavailable Lorri TRAN MD Unavailable Unavailable Lorri TRAN MD Unavailable Unavailable Lorri TRAN MD Unavailable Unavailable Lorri TRAN MD Unavailable Unavailable Lorri TRAN MD Unavailable Unavailable Lorri TRAN MD Unavailable Unavailable Lorri TRAN MD Unavailable Unavailable Lorri TRAN MD Unavailable Unavailable Lorri TRAN MD Unavailable Unavailable Lorri TRAN MD Unavailable Unavailable Lorri TRAN MD Unavailable Unavailable Lorri TRAN MD Unavailable Unavailable Lorri TRAN MD Unavailable Unavailable Lorri TRAN MD Unavailable Unavailable Lorri TRAN MD Unavailable Unavailable Lorri TRAN MD Unavailable Unavailable Lorri TRAN MD Unavailable Unavailable Lorri TRAN MD Unavailable Unavailable Lorri TRAN MD Unavailable Unavailable Lorri TRAN MD Unavailable Unavailable oLrri TRAN MD Unavailable Unavailable Lrori TRAN MD Unavailable Unavailable Lorri TRAN MD Unavailable Unavailable Lorri TRAN MD Unavailable Unavailable Lorri TRAN MD Unavailable Unavailable Lorri TRAN MD Unavailable Unavailable Lorri TRAN MD Unavailable Unavailable Lorri TRAN MD Unavailable Unavailable Lorri TRAN MD Unavailable Unavailable Lorri TRAN MD Unavailable Unavailable Lorri TRAN MD Unavailable Unavailable Lorri TRAN MD Unavailable Unavailable Lorri TRAN MD Unavailable Unavailable Lorri TRAN MD Unavailable Unavailable Lorri TRAN MD Unavailable Unavailable Lorri TRAN MD Unavailable Unavailable Lorri TRAN MD Unavailable Unavailable Lorri TRAN MD Unavailable Unavailable Lorri TRAN MD Unavailable Unavailable Lorri TRAN MD Unavailable Unavailable Lorri TRAN MD Unavailable Unavailable Lorri TRAN MD Unavailable Unavailable Lorri TRAN MD Unavailable Unavailable Lorri TRAN MD Unavailable Unavailable Lorri TRAN MD Unavailable Unavailable Lorri TRAN MD Unavailable Unavailable Lorri TRAN MD Unavailable Unavailable Lorri TRAN MD Unavailable Unavailable Lorri TRAN MD Unavailable Unavailable Lorri TRAN MD Unavailable Unavailable Lorri TRAN MD Unavailable Unavailable Lorri TRAN MD Unavailable Unavailable Lorri TRAN MD Unavailable Unavailable Lorri TRAN MD Unavailable Unavailable Lorri TRAN MD Unavailable Unavailable Lorri TRAN MD Unavailable Unavailable Lorri TRAN MD Unavailable Unavailable Lorri TRAN MD Unavailable Unavailable Lorri TRAN MD Unavailable Unavailable Lorri TRAN MD Unavailable Unavailable Lorri TRAN MD Unavailable Unavailable Lorri TRAN MD Unavailable Unavailable Lorri TRAN MD Unavailable Unavailable Lorri TRAN MD Unavailable Unavailable Lorri TRAN MD Unavailable Unavailable Lorri TRAN MD Unavailable Unavailable Lorri TRAN MD Unavailable Unavailable Lorri TRAN MD Unavailable Unavailable Stevie Koroma MD Unavailable Unavailable Stevie Koroma MD Unavailable Unavailable Stevie Koroma MD Unavailable Unavailable AnandadesStevie MD Unavailable Unavailable AridchivodesStevie MD Unavailable Unavailable AridchivodesStevie MD Unavailable Unavailable AridchivodesStevie MD Unavailable Unavailable Stevie Koroma MD Unavailable Unavailable AnandadesStevie MD Unavailable Unavailable AnandadesStevie MD Unavailable Unavailable AnandadesStevie MD Unavailable Unavailable AnandadesStevie MD Unavailable Unavailable AridchivodesStevie MD Unavailable Unavailable AridchivodesStevie MD Unavailable Unavailable Stevie Koroma MD Unavailable Unavailable AnandadesStevie MD Unavailable Unavailable AnandadesStevie MD Unavailable Unavailable AnandadesStevie MD Unavailable Unavailable AnandadesStevie MD Unavailable Unavailable AnandadesStevie MD Unavailable Unavailable AridchivodesStevie MD Unavailable Unavailable AnandadesStevie MD Unavailable Unavailable AnandadesStevie MD Unavailable Unavailable Stevie Koroma MD Unavailable Unavailable Stevie Koroma MD Unavailable Unavailable Stevie Koroma MD Unavailable Unavailable Stevie Koroma MD Unavailable Unavailable AridchivodesStevie MD Unavailable Unavailable AridchivodesStevie MD Unavailable Unavailable Brown, Alecia PA Unavailable Unavailable Brown, Alecia PA Unavailable Unavailable Brown, Alecia PA Unavailable Unavailable Brown, Alecia PA Unavailable Unavailable Brown, Alecia PA Unavailable Unavailable Brown, Alecia PA Unavailable Unavailable Brown, Alecia PA Unavailable Unavailable Brown, Alecia PA Unavailable Unavailable Brown, Alecia PA Unavailable Unavailable Brown, Alecia PA Unavailable Unavailable Brown, Alecia PA Unavailable Unavailable Brown, Alecia PA Unavailable Unavailable Brown, Alecia PA Unavailable Unavailable Brown, Alecia PA Unavailable Unavailable Brown, Alecia PA Unavailable Unavailable Brown, Alecia PA Unavailable Unavailable Brown, Alecia PA Unavailable Unavailable Brown, Alecia PA Unavailable Unavailable Brown, Alecia PA Unavailable Unavailable Brown, Alecia PA Unavailable Unavailable Brown, Alecia PA Unavailable Unavailable Brown, Alecia PA Unavailable Unavailable Brown, Alecia PA Unavailable Unavailable Brown, Alecia PA Unavailable Unavailable Brown, Alecia PA Unavailable Unavailable Brown, Alecia PA Unavailable Unavailable Brown, Alecia PA Unavailable Unavailable Brown, Alecia PA Unavailable Unavailable Brown, Alecia PA Unavailable Unavailable Brown, Alecia PA Unavailable Unavailable Brown, Alecia PA Unavailable Unavailable Brown, Alecia PA Unavailable Unavailable Brown, Alecia PA Unavailable Unavailable Brown, Alecia PA Unavailable Unavailable Brown, Alecia PA Unavailable Unavailable Brown, Alecia PA Unavailable Unavailable Brown, Alecia PA Unavailable Unavailable Brown, Alecia PA Unavailable Unavailable Brown, Alecia PA Unavailable Unavailable Brown, Alecia PA Unavailable Unavailable Brown, Alecia PA Unavailable Unavailable Brown, Alecia PA Unavailable Unavailable Brown, Alecia PA Unavailable Unavailable Brown, Alecia PA Unavailable Unavailable Brown, Alecia PA Unavailable Unavailable Brown, Alecia PA Unavailable Unavailable Brown, Alecia PA Unavailable Unavailable Brown, Alecia PA Unavailable Unavailable Poiesz, J Salbador Unavailable Unavailable Poiesz, J Salbador Unavailable Unavailable Poiesz, J Salbador Unavailable Unavailable Poiesz, J Salbador Unavailable Unavailable Poiesz, J Salbador Unavailable Unavailable Poiesz, J Salbador Unavailable Unavailable Poiesz, J Salbador Unavailable Unavailable Poiesz, J Salbador Unavailable Unavailable Poiesz, J Salbador Unavailable Unavailable Poiesz, J Salbador Unavailable Unavailable Poiesz, J Salbador Unavailable Unavailable Poiesz, J Salbador Unavailable Unavailable Poiesz, J Salbador Unavailable Unavailable Poiesz, J Salbador Unavailable Unavailable Poiesz, J Salbador Unavailable Unavailable Poiesz, J Salbador Unavailable Unavailable Poiesz, J Salbador Unavailable Unavailable Poiesz, J Sablador Unavailable Unavailable Poiesz, J Salbador Unavailable Unavailable Poiesz, J Salbador Unavailable Unavailable Poiesz, J Salbador Unavailable Unavailable Poiesz, J Salbador Unavailable Unavailable Poiesz, J Salbador Unavailable Unavailable Poiesz, J Salbador Unavailable Unavailable Poiesz, J Salbador Unavailable Unavailable Poiesz, J Salbador Unavailable Unavailable Poiesz, J Salbador Unavailable Unavailable Poiesz, J Salbador Unavailable Unavailable Poiesz, J Salbador Unavailable Unavailable Poiesz, J Salbador Unavailable Unavailable Poiesz, J Salbador Unavailable Unavailable Poiesz, J Salbador Unavailable Unavailable Poiesz, J Salbador Unavailable Unavailable Poiesz, J Salbador Unavailable Unavailable Poiesz, J Salbador Unavailable Unavailable Poiesz, J Salbador Unavailable Unavailable Poiesz, J Salbador Unavailable Unavailable Poiesz, J Salbador Unavailable Unavailable Poiesz, J Salbador Unavailable Unavailable Poiesz, J Salbador Unavailable Unavailable Poiesz, J Salbador Unavailable Unavailable Poiesz, J Salbador Unavailable Unavailable Poiesz, J Salbador Unavailable Unavailable PoieszKarthik Unavailable Unavailable CarlosKarthik lee Unavailable Unavailable CarlosKarthik lee Unavailable Unavailable Re-disclosure Warning The records that you are about to access may contain information from federally-assisted alcohol or drug abuse programs. If such information is present, then the following federally mandated warning applies: This information has been disclosed to you from records protected by federal confidentiality rules (42 CFR part 2). The federal rules prohibit you from making any further disclosure of this information unless further disclosure is expressly permitted by the written consent of the person to whom it pertains or as otherwise permitted by 42 CFR part 2. A general authorization for the release of medical or other information is NOT sufficient for this purpose. The Federal rules restrict any use of the information to criminally investigate or prosecute any alcohol or drug abuse patient.The records that you are about to access may contain highly sensitive health information, the redisclosure of which is protected by Article 27-F of the [facility] Public Health law. If you continue you may have access to information: Regarding HIV / AIDS; Provided by facilities licensed or operated by the [facility] Office of Mental Health; or Provided by the [facility] Office for People With Developmental Disabilities. If such information is present, then the following [facility] mandated warning applies: This information has been disclosed to you from confidential records which are protected by state law. State law prohibits you from making any further disclosure of this information without the specific written consent of the person to whom it pertains, or as otherwise permitted by law. Any unauthorized further disclosure in violation of state law may result in a fine or fdc sentence or both. A general authorization for the release of medical or other information is NOT sufficient authorization for further disc losure. Family History Family Member Name Family Member Gender Family Member Status Date o f Status Description Data Source(s) Unknown Unknown Encounters Encounter Providers Location Date Indications Data Source(s ) Outpatient Attender: Natanael SINGH 10/31/2020 12:00:00 AM [facility] Outpatient Attender: Salbador Rodriguez 09/25/2020 12:00:00 AM [facility] Outpatient Attender: Salbador Rodriguez [id number] 12:00:00 AM EST - 03/27/2020 03:42:01 PM EST Malignant neoplasm of bone and articular cartilage, unspecified [facility] Malignant neoplasm of bone and articular cartilage, unspecified Outpatient Referrer: Salbador Rodriguez 03/18/2020 12:00 :00 AM EST Personal history of malignant neoplasm of [facility] Personal history of malignant neoplasm o f bone Outpatient Referrer: Salbador Rodriguez 03/18/2020 12:00 :00 AM EST Personal history of malignant neoplasm of [facility] Personal history of malignant neoplasm o f bone Outpatient Referrer: Natanael SINGH 10/25/2019 12 :00:00 AM EDT Idiopathic aseptic necrosis of right femur [facility] Idiopathic aseptic necrosis of right fem ur Outpatient Attender: Natanael SINGH [id number] 10/25/2019 12 :00:00 AM EDT Presence of left artificial hip joint [facility] Presence of left artificial hip joint Outpatient Attender: Asher Koroma MDReferrer: ALECIA GRUBBS MD [id number] 10/24/2019 12:00:00 AM EDT - 10/24/2019 03:50:[address] [facility] follow up Outpatient Attender: Asher Koroma MD 10/16/2019 12:00:[address] [facility] Outpatient Attender: Salbador [id number] 020 12:00:00 AM EDT - 10/05/2019 02:26:07 PM EDT Personal history of malignant neoplasm of [facility] Personal history of malignant neoplasm o f bone Outpatient Referrer: Alecia SINGH 09/27/2019 12:00 :00 AM EDT Malignant neoplasm of vertebral column [facility] Malignant neoplasm of vertebral column Outpatient Referrer: Alecia SINGH 09/27/2019 12:00:[address] [facility] Outpatient Attender: Asher Koroma MD 07/17/2019 12:00:[address] [facility] Outpatient Attender: Salbador [id number] 019 12:00:00 AM EST - 03/30/2019 04:06:52 PM EST Malignant neoplasm of vertebral column [facility] Malignant neoplasm of vertebral column Outpatient Attender: Salbador Rodriguez 03/23/2019 12:00:[address] [facility] Outpatient Referrer: Alecia SINGH 03/21/2019 12:00 :00 AM EST Malignant neoplasm of vertebral column [facility] Malignant neoplasm of vertebral column Medications Medication Brand Name Start Date Product Form Dose Route Admi nistrative Instructions Pharmacy Instructions Status Indications Reaction Description Data Source(s) iohexol (OMNIPAQUE) 300 MG/ML contrast injection 100 mL [id number] 2403/18/2020 01:00:00 PM EST 100 mL Intravenous completed 100 mL, Intravenous, 1 TIME IMAGING, [facility] 03/18/20 at 1300, For 1 dose, Imaging Protocol [facility] Medication administered onsite Ibuprofen 800 MG Oral Tablet Ibuprofen 800 MG Oral Tab let (MOTRIN) Ibuprofen 800 MG Oral Tablet (MOTRIN) 03/12/2020 12:00:00 AM EST 800 mg Oral active Take 800 mg by mouth every 8 (eight) hours as needed For Pain [facility] 500 mg 03/11/2020 12:00:00 AM EST capsule 12 TAKE FOUR CAPSULES BY MOUTH 1 HOUR PRIOR TO DENTAL PROCEDURE TAKE FOUR CAPSULES BY MOUTH 1 HOUR PRIOR TO DENTAL PROCEDURE SOLD: 03/12/2020 [facility] iohexol (OMNIPAQUE) 300 MG/ML contrast injection 100 mL [id number] 2409/27/2019 11:00:00 AM EDT 100 mL Given by IV completed 100 mL, Given by IV, 1 TIME IMAGING, [facility] 09/27/19 at 1100, For [address] [facility] Medication administered onsite Ibuprofen 800 MG Oral Tablet Ibuprofen 800 MG Oral Tab let (ADVIL,MOTRIN) Ibuprofen 800 MG Oral Tablet (ADVIL,MOTRIN) 03/30/2019 12:00:00 AM EST 800 mg Oral active Take 1 tablet by mouth every 8 (eight) hours as needed for Pain [facility] 800 mg 03/30/2019 12:00:00 AM EST tablet 90 TAKE ONE TABLET BY MOUTH EVERY 8 HOURS NEEDED FOR PAIN TAKE ONE TABLET BY MOUTH EVERY 8 HOURS A S NEEDED FOR PAIN SOLD: 04/15/2019 [facility] 800 mg 03/30/2019 12:00:00 AM EST tablet 90 TAKE ONE TABLET BY MOUTH EVERY 8 HOURS NEEDED FOR PAIN TAKE ONE TABLET BY MOUTH EVERY 8 HOURS A S NEEDED FOR PAIN SOLD: 03/15/2020 [facility] iohexol (OMNIPAQUE) 300 MG/ML contrast injection 100 mL [id number] 03/21/2019 03:30:00 PM EST 100 mL Intravenous completed 100 mL, Intravenous, 1 TIME IMAGING, 03/21/19 at 1530, For 1 dose, Imaging Protocol [facility] Medication administered onsite Insurance Providers Payer name Policy type / Coverage type Policy ID Covered alliance party ID Covered alliance party's relationship to alejo Policy Alejo Plan Information [employer] [id number] [id number] EXCELL C [id number] Child [id number] MVP H [id number] Self [id number] MVP HEALTH CARE HEA [id number] P [id number] MVP HEALTH CARE [id number] MVP HEALTH CARE O [id number] S [id number] MVP H [id number] Self [id number] MVP [id number] MVP Select Care Commercial [id number] Family Dependent [id number] MVP Commercial Family Dependent [facility] PHY [id number] FA2 [id number] Problems, Conditions, and Diagnoses Code Display Name Description Problem Type Effective Dates Data Source(s) C41.9 Malignant neoplasm of bone and articular cartilage, 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 Z85.830 Personal history of malignant neoplasm o f bone Personal history of malignant neoplasm of bone Diagnosis 03/18/2020 12:49:20 PM EST [facility] follow up follow up Diagnosis 10/24/2019 03:08:24 PM ED [facility] Surgeries/Procedures Procedure Description Date Indications Data Source(s) CT CERVICAL SPINE W/CONTRAST MATERIAL CT CERVICAL SPINE WIT H CONTRAST [id number] Routine 03/18/2020 1:55 PM EST History of Whiteside's sarcoma 03/18/2020 01:55:12 PM EST Histor y of Whiteside's sarcoma [facility] History of Whiteside's sarcoma CT SOFT TISSUE NECK W/CONTRAST MATERIAL CT SOFT TISSU E NECK WITH CONTRAST [id number] Routine 03/18/2020 1:54 PM EST History of Whiteside's sarcoma 03/18/2020 01:54:17 PM EST Histor y of Whiteside's sarcoma [facility] History of Whiteside's sarcoma CT CERVICAL SPINE W/CONTRAST MATERIAL CT CERVICAL SPINE WIT H CONTRAST [id number] Routine 09/27/2019 11:17 AM EDT Whiteside's sarcoma of vertebra 09/27/2019 03:17:07 PM EDT Whiteside 's sarcoma of vertebra [facility] Whiteside's sarcoma of vertebra BLOOD COUNT COMPLETE AUTO&AUTO DIFRNTL WBC COUNT CBC AND DIFFER ENTIAL STAT 03/30/2019 3:25 PM EST Whiteside's sarcoma of vertebra 03/30/2019 08:25:00 PM EST Whiteside 's sarcoma of vertebra [facility] Whitesied's sarcoma of vertebra COMPREHENSIVE METABOLIC PANEL COMPREHENSIVE METABOLIC PANEL STA T 03/30/2019 3:25 PM EST 03/30/2019 08:25:00 PM [address] [facility] COMPREHENSIVE METABOLIC PANEL COMPREHENSIVE METABOLIC PANEL STA T 03/30/2019 3:25 PM EST Whiteside's sarcoma of vertebra 03/30/2019 08:25:00 PM EST Whiteside 's sarcoma of vertebra [facility] Whiteside's sarcoma of vertebra Results ID Date Data Source [id number] 04/08/2020 12:08:17 PM EST [facility] Name Value Range Interpretation Code Description Data Nisha rce(s) Supporting Document(s) Progress Note [facility] JYXLSz8bVpUKRrGk24/QOMncMETfi0KxMZpqYUw4BOweMLXwO0CmWAE2cW6xLNC7XGoUXmQjGnCfIeQ5 lbm [file] AgICAgICAgICAgICAgICAgICAgICAgICAgICAgICAg QKSrJWBmSITkUHMhHDMoWYRcSNIdVOUzAHCxVKYfFJNcEJFdJWKaRUVtJBNiJXWgQBVnDJ4XUQYbNHCf ICAgICAgICAgICAgICAgICAgICAgICAgICAgICAgICAgICAgICAgICAgICAgICAgICAgICAgICAgICAg ICAgICAgICAgICAgICAgICAgICAgICAgICAgICAgIC VgMU1PENPcVBQuAPHrDVQoCHKsIYEjSPDbJGGjXCYnBWBgIMDjFVWiRZAlQWPwWYOvAGShOJZwIDSzTF CbBYMwZTBcAFVnEMKqXKNsDAUdYHAgCZZfVQKxCKUwKDRdPYPcWDWdLZDhGS9QTAIyAZDeQGBhINDpEM AgICAgICAgICAgICAgICAgICAgICAgICAgICAgICAg HQKvYBDnWRIqTADnBPUgDEVbPRYnOLMgRLGcCSDaIZEqYGIdJXDjFSIaJXDeRZQqHCJgYNRwGU6OLGEm ICAgICAgICAgICAgICAgICAgICAgICAgICAgICAgICAgICAgICAgICAgICAgICAgICAgICAgICAgICAg ICAgICAgICAgICAgICAgICAgICAgICAgICAgICAgIC GvFHReXX4RPCGuLNYcJWQnMVKbFSWeFGFwLENjJWUkZCLwAXCqRWOhJWEaQAXzTQKvUKNtRFWhIMGqXT JaLUKaJQAzEDGdVFEmXNYfLMTtRTDuXTLkVUBtXNDhMNSmBQLgCDRrIZUbLNTeTA9CXFQxHQXkWLQvWQ AgICAgICAgICAgICAgICAgICAgICAgICAgICAgICAg DHPrRYDkNSSuNUFqZLFsMUWxKAJmMHLyOPYuYZAsEAOkHKYgDCPkFKBdRXBtFWNtSFTnABGeOUNzQH7E ICAgICAgICAgICAgICAgICAgICAgICAgICAgICAgICAgICAgICAgICAgICAgICAgICAgICAgICAgICAg ICAgICAgICAgICAgICAgICAgICAgICAgICAgICAgIC JqZVGdEKInFF7HOCUbKIVzCPAvQEOjWGHqAVTqQVWqXKEgKWUsIFRoOOEhLAUbFINhGWJfYKNvFCIgMJ WaVRJfNKGwDOGvUXZuZPMkWAQdSHKmBDEeIWCzOIVfTMGmTAFhHFCzLZZyOGAeMKSuEV6WCR27rRAca1 S1KKDvQR2wncu/Qx9YTBujomOmmMQlJG6VEaNyOY2y vr3DOcQoOQ2chr0PDTwQIzSiT1U4kXKqDGItVQWMIiAdF30vTPjmWd00ITvlLOSaQaCvXZq2Mq2ZKaLn C4rnTJVgPsE7CDKhThI4EFSvKjLoWItnQD9In2FwmIWeISr+Ua6QHR9wa6IuSNgkOYUmUY1kwh8JXTxT HtXbF1DwrkP4SOC1KNPrVm8RMBEhVICevBMaAIJbPU FGCfBxZ9GbwO87TRCNKc3+DInmquXgXcsKUwL4GBLyq9SoDHw0DL2RQNWwIIq6iHBeQXYsS0Agt2VrIi 33PVAeWlarUxEgesRbGHTUXXAclFKbzxtqSYRrLEIeSNVgJr0aCACqBABqZpCyYHKSRZ7ZMHCpDITngL MsDZQxIXYAWT8RHAobPUL9CPMakvIvdJOvUXydVP4E YXJlbnQgMjQgMCBSDQo+Ag9FIQ9mn9QnZGeeReMiQJ6pfy9GUMrMRzTsK6M5wFBuS3B1CCpvXn4AAPQk MWXyMhCjJSDCGXlvGY4VUH2phfA9PH2BeTVrFXTvBBMacVLaYUk9P93saAWsTEzoMN2LSRR+Zamzam+Pg0K KCRpJGLlOGElOrEgYWQNYoJpP2LpD3VOr2SqE1VrQP 73eCwwlqFwFQpjWG9PLV9pULLpVQRZZT7PmTIupR5pblIaOHYpEUIEDoUxZ80dsGQkSLRdKCElYUTlNz 2PLXIbH7SdvyDsvDjizeEyRGYhHTMUBU6ADEegemGquNMbhOxyZK33yOyaBT7OAp2ZIrKwBW7rsf9MaY PkCe8LZTCzXg9JACDaTUXqGRXjUJO6JGNfKzOcSWja NNYwRYSvYYH1WDHyRLNlXP8KScHuJABtKxK3UEfbLSYtCIKjmw9GFKXnJOZbUZA0RyQyXGZjWJTcZIjo FUGyBLMxTXW9NWAcYSZjMP3VRrWxZQGpPAT7GJMiPDJjXWMtwf5RAOUwPNZrTNx9RENfQOOiPICxMAct WASmCVD7JTL6LINrUWAoQN7TXmYzYVXhYKtkGtumUS HzMXNtwa8OEPGiVJKlFcn4MaZxTOQbNPRzYJhlYZYxYTH6FYslPKVlVARjYE9IGfLzAHExGYuyHwZvQD YpXOWqbt3NESZlVDIeWMHsZmRkZFReKIIoKLkaDIVsVQR5SKE6PMBzVCWfYN6TMmHgXPDqLZs5PfZtGZ BnBMXfgd8CLOXjLRToDXA6TmRjBXUdUHWzGVurFAAt SWEnJRb2DTTfHANgLC9TKcAlCFCcWrA2RImiQVHgZDQdjl9IIQAdMCVmUOinDgRkLVYmGUUjVAlpVNVi ONQcSTueNAIdLAXcAJ2SLeEmFKSsTmIlDvMrHMQiFBNceg7CKLJxPZAzRwBqWnXvOCZyKTIrUFghEXXn MLPdZtx1GSYyGUIgUI8TUoYvNIHoZfJ6XVJeUFOlII Zpis9MDUMvIWWgZEB2IyGpTSIgIAGwEUrySDBwTVQ6WdW0QJCbOXCoSU0WVfHuUOBwKwY1NqudSBJcRG Mdoo2StJByqWrfyd3CCUiFRv9NmNxlQDU2THjeHu2pxJAeYyDmJOSXUi9PrmZvKYGqBZJJGZquBLDzDG BtJDj6ToKiKEHpRDKsQAavANBxLWCqGkYbTlIvLYI4 MkC0NPArCOgdQAZzUJRtKFKeJBU6VQBpJrMtGUSjM7UbLcq+QM7sHOi+Uu0Hh4VerdR1ixEnGIuhEEss Ee6LKZVYM7YXHy== ID Date Data Source [id number] 03/18/2020 02:32:[address] [facility] [address] CERVICAL SPINE WITH CONTRAST [id number] AL RESULTInterpreted by:Davy Stanley MDEXAMINATION: CT CERVICAL SPINE WITH CONTRAST [id number] INDICATION: History of Whiteside sarcoma.TECHNIQUE: Axial CT images of the cervical spine were obtained following intravenous administration 100 cc of Omnipaque 300. Reformatted images in coronal and sagittal planes were then acquired using the axial source data. Automated dose lowering techniques and/or adjustment according to patient size were utilized for this examination.COMPARISON: CT of the cervical spine with contrast dated 09/27/[address] of the soft tissues of neck dated 03/21/2019.FINDINGS: Sclerosis within the C5 vertebral body is not significantly changed relative to the comparison studies dated 09/27/2019 and 03/21/2019. There are no new osteoblastic or osteolytic lesions within the cervical spine. There is no abnormal enhancement. There are no acute fractures. There is no spondylolisthesis. The vertebral body and disc space heights are normal. There is no prevertebral soft tissue swelling.IMPRESSION: No significant change in sclerotic changes within the C5 vertebral body. There are no new osseous lesions shown. This document has been electronically signed by Davy Stanley MD on 03/18/2020 2:30 PM Name Value Range Interpretation Code Description Data Nisha rce(s) Supporting Document(s) ID Date Data Source [id number] 03/18/2020 02:19:22 PM EST [facility] CT SOFT TISSUE NECK WITH CONTRAST [id number] INAL RESULTInterpreted by:Davy Stanley MDEXAMINATION: CT SOFT TISSUE NECK WITH CONTRAST [id number] INDICATION: History of Ewings sarcoma.TECHNIQUE: Axial CT images of the soft tissues of the neck were obtained following intravenous administration of 100 cc of Omnipaque 300. Coronal and sagittal images were then acquired using the source data. Automated dose lowering techniques and/or adjustment according to patient size were utilized for this examination.COMPARISON: CT of the soft tissues of the neck dated 03/21/2019.FINDINGS: The presence of dental amalgam causes streak artifact that obscures portions of the mandible, maxilla and the soft tissues of the street light repairer and buccal spaces and oral cavity and oropharynx thus limiting evaluation in these regions. There are no abnormally enhancing masses in the superficial or deep soft tissues of the head and neck. The fat planes are preserved. No abnormally enlarged lymph nodes are present. The oropharynx, hypopharynx, larynx, and trachea are patent. The parotid glands, submandibular glands, and thyroid gland are unremarkable. There is interval decrease in mucosal thickening within the maxillary sinuses. 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 Remaining imaged portions of the paranasal sinuses and mastoid air cells are normal. There is no abnormal enhancement in the imaged portions of the brain.Imaged portions of the lungs and the mediastinum are normal.IMPRESSION: 1. Normal soft tissues of the neck.2. Please refer to the separate report for a concurrently performed CT of the cervical spine.This document has been electronically signed by Davy Stanley MD on 03/18/2020 2:17 PM Name Value Range Interpretation Code Description Data Nisha rce(s) Supporting Document(s) ID Date Data Source [id number] 01/02/2020 03:10:12 PM EDT [facility] Name Value Range Interpretation Code Description Data Nisha rce(s) Supporting Document(s) Progress Note [facility] PXBLYd8cEfSUZyXj54/QHKvmOIVde5RqVResLSg7POhcYPLiV9RrBZK0dX7bOOV9CNhTIeEkFaDeJQO1 lbm [file] oVOuoBsnOBLKHjWjDSl6UPklGUFXAv0M ID Date Data Source [id number] 10/26/2019 08:40:21 AM EDT [facility] XR HIPS- BILAT, 3-4 VIEWS [id number] RE SULTInterpreted by:Rashawn Contreras, MDPELVIS AND BILATERAL HIPCLINICAL STATEMENT: Status post bilateral hip arthroplasty. Follow-up.TECHNIQUE: 5 views of the pelvis and bilateral hips.COMPARISON: 01/24/2019.FINDINGS: Since the prior study, there has been no significant interval change.The patient is status post total bilateral hip arthroplasty. The hardware appears intact and properly aligned. No acute periprosthetic fracture or dislocation is identified.IMPRESSION: Since 01/24/2019, No significant interval change.Status post total bilateral hip arthroplasty, with stable postoperative changes.This document has been electronically signed by Rashawn Contreras MD on 10/26/2019 8:38 AM Name Value Range Interpretation Code Description Data Nisha rce(s) Supporting Document(s) ID Date Data Source [id number] 10/25/2019 11:50:06 AM EDT [facility] Name Value Range Interpretation Code Description Data Nisha rce(s) Supporting Document(s) Progress Note [facility] YBBSTc5rQjYVJhBx92/WEOteFAHic0HqRQayJCz6OMcfVODfM2JtTAC7oW2sZZG3QBaMHrWwQlLfQnNu lbm [file] ICAgICAgICAgICAgICAgICAgICAgICAgICAgICAgICAgICAgICAgICAgICAgICAgICAgICAgICAgICAg ICAgICAgICAgICAgICAgICAgICAgICAgICAgICAgIC AgICAgDQogICAgICAgICAgICAgICAgICAgICAgICAgICAgICAgICAgICAgICAgICAgICAgICAgICAgIC AgICAgICAgICAgICAgICAgICAgICAgICAgICAgICAgICAgICAgICAgICAgICAgDQogICAgICAgICAgIC AgICAgICAgICAgICAgICAgICAgICAgICAgICAgICAg ICAgICAgICAgICAgICAgICAgICAgICAgICAgICAgICAgICAgICAgICAgICAgICAgICAgICAgICAgDQog ICAgICAgICAgICAgICAgICAgICAgICAgICAgICAgICAgICAgICAgICAgICAgICAgICAgICAgICAgICAg ICAgICAgICAgICAgICAgICAgICAgICAgICAgICAgIC AgICAgICAgDQogICAgICAgICAgICAgICAgICAgICAgICAgICAgICAgICAgICAgICAgICAgICAgICAgIC AgICAgICAgICAgICAgICAgICAgICAgICAgICAgICAgICAgICAgICAgICAgICAgICAgDQogICAgICAgIC AgICAgICAgICAgICAgICAgICAgICAgICAgICAgICAg ICAgICAgICAgICAgICAgICAgICAgICAgICAgICAgICAgICAgICAgICAgICAgICAgICAgICAgICAgICAg DQogICAgICAgICAgICAgICAgICAgICAgICAgICAgICAgICAgICAgICAgICAgICAgICAgICAgICAgICAg ICAgICAgICAgICAgICAgICAgICAgICAgICAgICAgIC AgICAgICAgICAgDQogICAgICAgICAgICAgICAgICAgICAgICAgICAgICAgICAgICAgICAgICAgICAgIC AgICAgICAgICAgICAgICAgICAgICAgICAgICAgICAgICAgICAgICAgICAgICAgICAgICAgDQogICAgIC AgICAgICAgICAgICAgICAgICAgICAgICAgICAgICAg ICAgICAgICAgICAgICAgICAgICAgICAgICAgICAgICAgICAgICAgICAgICAgICAgICAgICAgICAgICAg ICAgDQogICAgICAgICAgICAgICAgICAgICAgICAgICAgICAgICAgICAgICAgICAgICAgICAgICAgICAg ICAgICAgICAgICAgICAgICAgICAgICAgICAgICAgIC RgZJSoBNEqSSEvAJMsJVm8K1ioWLZmEJFqZE2kQUw5Nh4+IDyBRiEkYQX5xaKhhO3EAW1cv1BhUZdqQN Lua7FxMFa7MI5YCAAhXMdrOJ8SISjpaf6JJCOyBWUghCISg4ixAiEtPKW9FVJmBherNC9PSAWlR4nrye MoLKRkKUDBFFelUSBOYT5LAjLrT5RogQ31UJEWVj9+ FIteicVwGijBOlN0RDQlm0ObBJr4GJ9KHFSvAbzbn6TtSAEgJGICPUrnHU7HBLG6VCXvRYNpLi6BBODa E061owEnXM5QOy8WCzSoHW5fzw0RBDUrVGDzJesSCml8SGgbEZ0WgZRtFBlSdh2hijZwsoRIv7CmdeHx pXKUCE4hMKtxJOL6oTZpAkybu5hztohoVICrRELdHt 7fWuKcIlYuNYU6ORMfIK6jQMgqOV4SPNZ2JRwlLSMnJUOvW9gUMnDiZABmCRSyeGtoDJ3OAeEyI8Pdne VudCAzOSAwIFINCj4+TLhpjdFbDxgACwVvWCBpv0ClUEs8KQ9SUQUmHHfcRG1DHLRleM5hLQurBB6SUp VmTtQxMFAJTlQeE53asVHgBHw1M9GpWqQgCRVpAopy ZXMgPDwvTmFtZXMgWyBdDQogID4+ID4+ZTpnAU2YBPedtuFbHCUhGj6FTUIjMGAbRZ3bBOSlHDKpJ3T9 pCkrOICGXgZmT5ablwhcGP5iNLWgS043iDupurMhLJO8YPTwQp0CIURsWTX7STNnjDJcLvpiJQSTAFwe KP4UwAVnOLD8sR5hDNtmLONmRLYbY1kOOoCduGnpFT 51bGwgbnVsbCBdDQo+Cc7CHS9zt4OcBLu6lcZhJJdhLCHjEEcpVPSoWVUlNCZdWOX8VJV0MCJEZrOqMC PpMMWeWFozAUYqHDLron2UYDObDWS2XCKnPQZwOAFkTRMaCXvqIPYzSWQpIMDlBFBuMPLiQF3GSuLzUM IkDFCsTEyfBQUjJOEucs6XVETvOKZvRhzbXnUkBPPm QHQdBAusNCEoGFQ0IFPuGFMmCGMqLW7MKjDkZGCqKZYyLcOmBRWuVMRpyj7RYTLzAXQhVCGiJWVxBZTs HDVpSJewJVOmZOM2Ron7YZGmEBMnIP8KMwKlEHJoQEM2EYWmJYUcXZShbr0WHNPdANEkUhK3KOSjHQFk TZGnKAonPLLlXTU5OiFhBGDiSKThZQ3KOvBaLCMdCR n5XtYmDMGtNSOmsg0NKBZgKSMaZTIjEfOpFUHtSWOnKDcmMMRvKHL6XHQqXQFmGNFrRR2QNqNtTNKeMT w1CuanMPLbRDEqfj1HITDcRGXqRDm1KjTcGPGcUDXpUUkgOMTtQOUhErQ9RKOrQLQxDM4FEsJvMVUjEr AbIIExGHBwLXIlmd2LTGSgABBjKYHdRvZwVFFkWYWs UYtmQQIgALVbKFF3UBZyHHIlYG8RXsOeNMFcOqC7XucyHQEfSHAbeg1NBYWhFZVaAvK4EyZqYEBsPISh UHzgNVRzJPY3XWCzFUWkDJKnLG4TCsXdOUWxRtD8VnXgLAJvSLFvdg9PUFOaLWXbNbR0WMCjTZDoSMPv XFavECPbTYK1JhP3RBHnLGRqDV8DJeYfKKQqPDYfBU LoYGHsEGRdmn4EXPCqRZF8UbCuEBXtRGBbNGNpILwfCAKyPRSfVkVhLOZmLNCxGB7VVrDtXMHmFCR5Ph FuWUFrFXTaei2CRBKlAEK9BqDbGXHxZMIzAYHbJVdzSXRyNEWxTvCeQDUfEQZrKG2WIsCqXHRgJLH1MF FfJWRgZUGmdd8WDUPdYZL8QjXfNsYmNNPeZAFqXSdw WWHyLWVsGPNyHSIuRHYyXP4RLeQsSKFzGFRtWPXgINWjKNOhjp7ERKJeHIX7KAW4OYEkRRYaGIJhLBdg MQPvEPEbOCZ2GNAqSCMnOG1IJjNzMIVdQSIxNJRgKJHfNMQukb8JREGdXEP6FlZ1WXMoMSBbCFFyLBo0 gaBhaTRzJLh4CZ9VJ9NmnnJzYWVWEz5Py833RNOxPE SqLj9EQ3swVi8yYGDsKQKVTq1ZSAi2PPG7OERjGCN6OKXzM9C8KLRiRhzdGjJnXvLsPoY1QUY+IDwxZj PmXDExDSMoUZN7Jfy7EGJyT1O0YYV5UDUdPkomOM1dSJOJDg5+JNqcrZKinKqpJRIOXtHiIUO2RMppNG VPRg0K ID Date Data Source [id number] 10/16/2019 10:06:32 AM EDT [facility] Name Value Range Interpretation Code Description Data Nisha rce(s) Supporting Document(s) Progress Note [facility] NYXBDe9rZyCUMhQs07/EDDvxHTGun7AwEHidUXb5DZxxNXMbV0QgJFX0lH7mWLP7YBnRHxQuWsUiLzQg lbm [file] EIstSRpiUKSmVkV4TAF1UzEzLC6OLl0JMvU9UXG7rFWdNl0FDdElFHMYSuKjTT1NJTy= ID Date Data Source [id number] 09/27/2019 12:10:40 PM EDT [facility] CT CERVICAL SPINE WITH CONTRAST [id number] AL RESULTInterpreted by:Rosenda Boss MBBSEXAMINATION: CT cervical spine without contrastCLINICAL INDICATION: 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 Reformatted images in coronal and sagittal planes were then acquired using the axial source data. Automated dose lowering techniques and/or adjustment according to patient size were utilized for this examination.COMPARISON: None at our institution at the time of this dictation.FINDINGS: The presence of dental amalgam with streak artifacts partly obscures the portion of the oral cavity and oropharynx and upper cervical vertebra.There is slight interval decrease in sclerotic changes of C5 vertebra with minimal residual sclerosis. No sclerotic or lytic lesions seen within the remainder of the cervical spine. Vertebral body are normal in alignment There is no spondylolisthesis. The vertebral body and disc space heights are normal. There is no prevertebral soft tissue swelling. Following contrast demonstration no abnormal enhancement is seen.The thyroid gland is unremarkable. The imaged portion of upper thorax is unremarkable.IMPRESSION: Slight interval decrease in sclerotic changes in C5 vertebra. No new lesions are identified.This document has been electronically signed by Gabby Day MD on 09/27/2019 12:08 PM Name Value Range Interpretation Code Description Data Nisha rce(s) Supporting Document(s) ID Date Data Source [id number] 04/02/2019 11:37:27 AM [facility] Name Value Range Interpretation Code Description Data Nisha rce(s) Supporting Document(s) Progress Note [facility] CYGBDm3eUfHIWtEb39/OKSmlWXDyu6ElTGwzCUj5RGfuWJCqO8BeXXL2zE6gNOM5NQuPVfWhNUzmYjC6 lbm [file] AgICAgICAgICAgICAgICAgICAgICAgICAgICAgICAgICAgICAgICAgICAgICAgICAgICAgICAgICAgIC AgICAgICAgICAgICAgICAgICAgICAgICAgICAgICAg NN5CKXExPHVfCMTgZYVtGALkEQJqIIElVXOdVKDjIEYjLNPtATQlNBIySAApZGUkHGBeYALtGNOoIJOe NPAjHAJkHSVcINKwHCDoPKSvRTQxILCdTKRmOVMoBSSjQIDlUGVhPZLeVD7FDRCgAHEjYDAsAWGcJZFs ICAgICAgICAgICAgICAgICAgICAgICAgICAgICAgIC VjJZRgNWIiKOGpJNFeFWPeAGMpQFCbIUIcEBAiYQBtSZYvZZGwQWMoGZOjYLNiSLBaBXBlVJ3XRNKfVZ AgICAgICAgICAgICAgICAgICAgICAgICAgICAgICAgICAgICAgICAgICAgICAgICAgICAgICAgICAgIC AgICAgICAgICAgICAgICAgICAgICAgICAgICAgICAg EXOrBN8CQOFqWELyZGDrSPLzKHRaHTCmYGDyTTZxFRLnREDqSPThWCQhCJXdOODqQXSlZLEkGFYfSYZi NFDzQGGmOSVtEUBxDEMlXUXtGHPyEMEqWJNyLJIuLKXdWCWeLMBzNJWsOTPnIW6MUYQoYMHyGJUjDWEh ICAgICAgICAgICAgICAgICAgICAgICAgICAgICAgIC HzFUSdTYJnZTWkZKXpFERrDNWpOAEfKNFjNXOsQEIuLCQsOPXlEJXuUZJbNPVhUPToBHMxPRZkUG7WKL AgICAgICAgICAgICAgICAgICAgICAgICAgICAgICAgICAgICAgICAgICAgICAgICAgICAgICAgICAgIC AgICAgICAgICAgICAgICAgICAgICAgICAgICAgICAg ELVkTIIhET5KINEkNDPdZZVhLMCyGOVhEALhPULgWXCbTUNlGWQhGQAjYWAfUSEyPHVbYDCjFOAoSJLc MRSiRMXnOGXnUCCqTDJvEVGqDFXfLSKxGNYqTFTrVRWbSLXzWAEvMETdMNDnHUBdHU0ZZOOeHTVbVYXu ICAgICAgICAgICAgICAgICAgICAgICAgICAgICAgIC AgICAgICAgICAgICAgICAgICAgICAgICAgICAgICAgICAgICAgICAgICAgICAgICAgICAgICAgICAgIA 0KICAgICAgICAgICAgICAgICAgICAgICAgICAgICAgICAgICAgICAgICAgICAgICAgICAgICAgICAgIC AgICAgICAgICAgICAgICAgICAgICAgICAgICAgICAg PGIxCFHoIRNpFQ4DCU16vYBvh1P8MTXbLK5giqy/Fi3AIYxgvoOngNVcBW5FHrUzPJ5ufn4SXyDeSN0s mq9JCPlOQxJvZ5G8gMWjNLBsMUJYSmQzE84pZLtiXg37RLwxUIUvJtUgVAr4Pd1IUiChP4rhSXNzQsV9 CHFbVfEkKZbcBX3Uc9HywNRrPXg+Gd6WJU9rh7EvLY fkRLSpQM0iwy8KUPwEVqPhV7OyxpG6QSMgQBFfHu9QIUWiXVTztIKbZENsVEQOYbFkA3PduG53NMUIYs 4+DOorbsOhKbfCBgNcAPRlh5IrCEh7JP3AWDQmJSf1nRAyHSLmB0Ouo5WfSj74CAVkLraqArVifsEqDT FYWHMcjZXfsocmHKOaHDRcMVPbZs0aSXF9FJQiCbMh GKCRND8ACDUgBRXsvNExKUFrUTQJKW0MXVjaCHK7GVDcduQzjYEdIOtyGE5TKFMlelJfDSqpQQUXNMg+ Gb9KJV7zs4ZwFSrqBEVuGI2peq6YZRfLTwOhT5J6zJVuC5T9ZXqsXa3TOBWjQVAgKGqfPWBYEBdeVZ2E GH3wndA4OY6HoJXdQXIwGYOusKXcANr0O47qkFQzUP fsKR3UKXM+Zamzam+Mx9GSBYiEAKqBFWmWzMwUAPFGaVsQ4LgA2GRu4RvQ5YcSZ69nKaqnmBbDOxjKH6WCY 1kUCVoLWILPG7GxBAbaP6seqNqEXXjBGSQWbHoO93ohFWtNAYhIIP5QKYdAw5OAZBsS5XgkyRocJofte WkLBShWNVMEA5REVpiohZoyNAzjQjnGX29oJgpJP0E Xd5RJwXdIX3ihq2OcFLfEi3LXCWvJp7JYBJbZEHhUOUzRNF6YVOpGyLaHNxhHVZtQKTmMJL5GRYrPLAq PS1JMrSeRSGsZXa9OkJpNAVlMOEzca5UQCYnARLuEPQ8KeMkMBXdDNNgWMbaHMJfZOOwDBS9LEKnYFIt IY6YLmQvCERhFZKiYFFdMSOpQYHzyl2NMONdUCNhSm J0FRReIQThSKVuWAlaQMBpBTLnHKV9GZStVMJkAF1TYkKaBNSxFKS4MFHoCXOePPBqbq4QLJGqEIPfMj n8JZBxGIUwLHCaREawIDBuCRZ5KgX8YNNmLJJtGN5BLpHkNNDxOYK6TRFaWNSxDJKtjt5FRWVqIDSbOC LyUbCdPYVbFDOeMCriYFDiFYZ5QIebXZTxQKTtMG5H ApEsZMPfBKJ8JJutROAdGAHasg9BVFMiIDBpYjQeTcQrVPYgEVIfNQcqNIQvRRW1TpN5YBSwUDBwTM4P VeJdQNSwEEr9ILUdONCqCRXpzw8ITLKnCVAsIetuEiLnIFKsQKYgWHszWJTmNAE3WoOrRPVwSBLtKC6A GcLmDIIpSBhrSOCwXJWqOVDgvi1BRILsKXAmNEK5Vy PeHFByKXJuMGi1kbFmeMAuZFx5UW1PD7FjrrMnXfCVFx8Hf951SAWiDFYtHk4FZ0dhIe8oYVFaAQTLJc 1TVPh4PYYqJuyoORD1OIIaSTQtLsouDiPhUBZ1RSTaLoSeOVV+EWa2HAClV6OeWdZhTSN2BPK8AURmLu YfCsj5DTLlQCFlSv7yKCBQUt8+ZXhrwWZniWfmIPNSEtR7FeK7XAoeTBMNEv0Q ID Date Data Source [id number] 03/30/2019 04:04:19 PM EST [facility] Name Value Range Interpretation Code Description Data Nisha rce(s) Supporting Document(s) Progress Note [facility] BRBFIz8gEqVWKmBq47/DBDlcMYGze2CkLOnwDXx0GXyrHAGuP4MaKKB0bJ3zDQH3JBiLLaFnJZfgOkT2 lbm [file] [id number]== ID Date Data Source [id number] 03/30/2019 03:34:49 PM [facility] Name Value Range Interpretation Code Description Data Nisha e(s) Supporting Document(s) Leukocytes [#/volume] in Blood by Automated count 4.8 10*3/uL 4-10 [facility] Erythrocytes [#/volume] in Blood by Automated count 5.10 10*6/uL 4.6- 6.1 [facility] Hemoglobin [Mass/volume] in Blood 14.3 g/dL 13.5-18 [facility] Hematocrit [Volume Fraction] of Blood by Automated count 42.4 % 4 1-53 [facility] Erythrocyte mean corpuscular volume [Entitic volume] by Auto mated count 83.1 fL 80-96 [facility] Erythrocyte mean corpuscular hemoglobin [Entitic mass] by Automated count 28.0 pg 27-33 [facility] Erythrocyte mean corpuscular hemoglobin concentration [Mass/volume] by Automated count 33.7 g/dL 32.0-[facility] E[facility] distribution width [Ratio] by Automated count 14.5 % 11.5-14.5 [facility] Platelets [#/volume] in Blood by Automated count 267 10*3/uL 150-400 [facility] Differential cell count method - Blood [facility] Neutrophils/100 leukocytes in Blood by Automated count 52 % [facility] Lymphocytes/100 leukocytes in Blood by Automated count 36 % [facility] Monocytes/100 leukocytes in Blood by Automated count 9 % [facility] Eosinophils/100 leukocytes in Blood by Automated count 3 % [facility] Basophils/100 leukocytes in Blood by Automated count 0 % [facility] Neutrophils [#/volume] in Blood by Automated count 2.53 10*3/uL 1.8-[address] [facility] Lymphocytes [#/volume] in Blood by Automated count 1.70 10*3/uL 1.2-[address] [facility] Monocytes [#/volume] in Blood by Automated count 0.41 10*3/uL 0-0.8 [facility] Eosinophils [#/volume] in Blood by Automated count 0.12 10*3/uL 0-0.5 [facility] Basophils [#/volume] in Blood by Automated count 0.01 10*3/uL 0-0.2 [facility] Nucleated erythrocytes/100 leukocytes [Ratio] in Blood by Automated count 0 /100{WBCs} 0-0 [facility] ID Date Data Source [id number] 03/30/2019 04:56:29 PM [facility] Name Value Range Interpretation Code Description Data Nisha rce(s) Supporting Document(s) Albumin [Mass/volume] in Serum or Plasma by Bromocresol green (BCG) dye binding method 3.4-4.8 [facility] al Bilirubin.total [Mass/volume] in Serum or Plasma <1.2 [facility] Calcium [Mass/volume] in Serum or Plasma 8.4-10.2 [facility] Chloride [Moles/volume] in Serum or Plasma 98-107 [facility] Creatinine [Mass/volume] in Serum or Plasma 0.70-1.20 [facility] Glucose [Mass/volume] in Serum or Plasma 70-140 [facility] Alkaline phosphatase [Enzymatic activity/volume] in Serum or Plasma 40-129 [facility] Potassium [Moles/volume] in Serum or Plasma 3.3-5.1 [facility] Protein [Mass/volume] in Serum or Plasma 6.4-8.3 [facility] Sodium [Moles/volume] in Serum or Plasma 133-145 [facility] Aspartate aminotransferase [Enzymatic activity/volume] in Serum or Plasma <38 [facility] Urea nitrogen [Mass/volume] in Serum or Plasma 6-20 [facility] Osmolality of Serum or Plasma by calculation 275-300 [facility] Creatinine/Urea nitrogen [Mass Ratio] in Serum or Plasma [facility] Bicarbonate [Moles/volume] in Serum 22-29 [facility] Alanine aminotransferase [Enzymatic activity/volume] in Serum or Pl asma <41 [facility] Anion gap 3 in Serum or Plasma 8-15 [facility] Albumin/Globulin [Mass Ratio] in Serum or Plasma [facility] Glomerular filtration rate/1.73 sq M pre dicted among non-blacks [Volume Rate/Area] in Serum or Plasma by Creatinine-based formula (MDRD) >[address] [facility] Glomerular filtration rate/1.73 sq M pre dicted among blacks [Volume Rate/Area] in Serum or Plasma by Creatinine-based formula (MDRD) >60 [facility] ID Date Data Source [id number] 03/30/2019 04:15:12 PM [facility] Name Value Range Interpretation Code Description Data Nisha rce(s) Supporting Document(s) Albumin [Mass/volume] in Serum or Plasma by Bromocresol green (BCG) dye binding method 4.4 g/dL 3.5[facility] Bilirubin.total [Mass/volume] in Serum or Plasma 0.4 mg/dL <1.2 [facility] Calcium [Mass/volume] in Serum or Plasma 9.2 mg/dL 8.6-10.0 [facility] Chloride [Moles/volume] in Serum or Plasma 104 mmol/L 98-107 [facility] Creatinine [Mass/volume] in Serum or Plasma 0.92 mg/dL 0.70-1.20 [facility] Glucose [Mass/volume] in Serum or Plasma 102 mg/dL 70-140 [facility] Alkaline phosphatase [Enzymatic activity/volume] in Serum or Plasma 208 U/L 40-[address] [facility] Potassium [Moles/volume] in Serum or Plasma 4.1 mmol/L 3.4-5.1 [facility] Protein [Mass/volume] in Serum or Plasma 6.9 g/dL 6.4-8.3 [facility] Sodium [Moles/volume] in Serum or Plasma 138 mmol/L 136-145 [facility] Aspartate aminotransferase [Enzymatic activity/volume] in Serum or Plasma 17 U/L <40 [facility] Urea nitrogen [Mass/volume] in Serum or Plasma 14 mg/dL 6-20 [facility] Osmolality of Serum or Plasma by calculation 286 mosm/kg 275-300 [facility] Creatinine/Urea nitrogen [Mass Ratio] in Serum or Plasma 15 [facility] Bicarbonate [Moles/volume] in Serum 24 mmol/L 22-29 [facility] Alanine aminotransferase [Enzymatic activity/volume] in Seru m or Plasma 22 U/L <41 [facility] Anion gap 3 in Serum or Plasma 9 mmol/L 8-15 [facility] Albumin/Globulin [Mass Ratio] in Serum or Plasma 1.8 [facility] Glomerular filtration rate/1.73 sq M pre dicted among non-blacks [Volume Rate/Area] in Serum or Plasma by Creatinine-based formula (MDRD) >[address] [facility] Glomerular filtration rate/1.73 sq M pre dicted among blacks [Volume Rate/Area] in Serum or Plasma by Creatinine-based formula (MDRD) >60 [facility] ID Date Data Source [id number] 03/22/2019 02:18:[address] [facility] [address] SOFT TISSUE NECK WITH CONTRAST [id number] INAL RESULTInterpreted by:Keagan Montieloma, restagingCT SOFT TISSUE NECK WITH CONTRAST [id number] COMPARISON: CT soft tissues neck 12/19/2018..NECK CT SCAN PROCEDURE : Contiguous axial tomographic sections were obtained through the neck after administration of non- ionic intravenous contrast. The amount of contrast material used was recorded in the RIS and this information can be retrieved from there.Automated dose lowering techniques and/or adjustment according to patient size were utilized for this exam.NECK CT SCAN FINDINGS:Sclerosis of C5 vertebral body noted as noted in the previous study dated 12/19/2018. No significant neck lymphadenopathy is noted.Potential Spaces: Pharyngeal, retropharyngeal, and carotid spaces are normal. Tonsils and Adenoids: UnremarkableBase of Tongue: Normal.Epiglottis and Glottis: Normal. No distinct mass identified.Salivary Glands: Parotid and submandibular glands are normal.Visualized Brain: Normal.Paranasal Sinuses: P aranasal sinuses are clear. Mastoid Air Cells: Mastoid air cells are clear. Orbits and Globes: Normal.Thyroid Gland: Normal.Visualized brain: UnremarkableIMPRESSION: Stable sclerosis of C5 vertebral body. No recurrent mass or significant change since previous study identified.This document has been electronically signed by XENIA Montiel on 03/22/2019 2:16 PM Name Value Range Interpretation Code Description Data Nisha rce(s) Supporting Document(s) Procedure Social History Code Duration Value Status Description Data Source(s ) Alcohol intake 04/08/2020 12:00:00 AM EST Current non-d poppy of alcohol (finding) completed Current non-drinker of alcohol (finding) [facility] Tobacco use and exposure 04/08/2020 12:00:00 AM EST Never used co mpleted Never used [facility] Smoking 04/08/2020 12:00:00 AM EST Never smoker completed Never s [facility] Alcohol intake 10/25/2019 12:00:00 AM EDT Current non-d poppy of alcohol (finding) completed Current non-drinker of alcohol (finding) [facility] Smoking 10/25/2019 12:00:00 AM EDT Never smoker completed Never s [facility] Alcohol intake 10/16/2019 12:00:00 AM EDT Current non-d poppy of alcohol (finding) completed Current non-drinker of alcohol (finding) [facility] Smoking 10/16/2019 12:00:00 AM EDT Never smoker completed Never s [facility] Alcohol intake 03/30/2019 12:00:00 AM EST Current non-d poppy of alcohol (finding) completed Current non-drinker of alcohol (finding) [facility] Smoking 03/30/2019 12:00:00 AM EST Never smoker completed Never [facility] Vital Signs ID Date Data Source [id number] 01/02/2020 03:10:12 PM EDT [facility] Name Value Range Interpretation Code Description Data Source(s) WEIGHT RECORDED 220 lb 220 lb [facility] ID Date Data Source [id number] 04/02/2019 11:37:27 AM [facility] Name Value Range Interpretation Code Description Data Source(s) WEIGHT RECORDED 210.2 lb 210.2 lb [facility] Patient Treatment Plan of Care Planned Activity Planned Date Details Description Data Source (s) Ibuprofen 800 MG Oral Tablet 03/12/2020 12:00:00 AM [facility] Ibuprofen 800 MG Oral Tablet 03/30/2019 12:00:00 AM [facility]
--- OUTSIDE RECORDS SUMMARY | 2020-05-11 20:09 | CCD | Summary of Care ---
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 Name Role Phone Destin Sargent MD PCP Reason for Referral * Diagnostic Radiology (Routine) Referred By Contact Referred To Contact Status Reason Specialty Diagnoses / Procedures Salbador Rodriguez MD [address] [place] [address] Email: [email or web address] Authorized Radiology Diagnoses History of Whiteside's sarcoma P rocedures CT Soft Tissue Neck with Contrast Reason for Visit * Diagnostic Radiology (Routine) Referred By Contact Referred To Contact Status Reason Specialty Diagnoses / Procedures Salbador Rodriguez MD [address] [place] [address] Email: [email or web address] Authorized Radiology Diagnoses History of Whiteside's sarcoma P rocedures CT Soft Tissue Neck with Contrast Encounter Details Care Team Description Date Type Department History of Whiteside's sarcoma 03/18/2020 [facility] SCAN Encounter [address] [address] Allergies Comments Active Allergy Reactions [...] Type Specialty Salbador Rodriguez MD [address] [place] [address] [phone] 03/27/2020 Telemedicine Hematology and Onco logy Natanael Montes De Oca PA [address] [place] [address] [phone] 10/31/2020 Office Visit Orthopedic Surgery Health Maintenance [...] Area Manufactur er 03/06/2021 [id number] / / [id number] Port- Power Pac-10fr Dl Lpronew Right: Chest LERMA S Intro - [id number] Wall MEDICAL Implanted: Qty: 1 on 10/05/2016 by Arie Cannon MD at [facility] 03/14/2023 [id number] / / [id number] Shell Atab C-Hole 58f Trident - Right: Hip STRYK ER [id number] CORPORATIO Implanted: Qty: 1 on 07/10/2018 by Jhonathan Vale MD at [facility] 05/08/2023 [id number] / / [id number] Screw Hex Low Prof 6.5x40mm. - Right: Hip STRYKE R [id number] CORPORATIO Implanted: Qty: 1 on 07/10/2018 by Jhonathan Vale MD at [facility] 05/07/2023 [id number] / / [id number] Insert Poly Trdnt 36mm 0deg - Right: Hip MILES [id number] CORPORATIO Implanted: Qty: 1 on 07/10/2018 by Jhonathan Vale MD at [facility] 08/20/2020 [id number] / / [id number] Spacer Distal Cement 11mm - Right: Hip MILES [id number] CORPORATIO Implanted: Qty: 1 on 07/10/2018 by Jhonathan Vale MD at [facility] 12/14/2021 [id number] / / [id number] Hip Stem Accolade 127 Dg Nk #7. - Right: Hip STR YKER [id number] CORPORATIO Implanted: Qty: 1 on 07/10/2018 by Jhonathan Vale MD at [facility] 08/23/2019 [id number] / / [id number] Cement Bone Simplexw/Tobra - Right: Hip MILES [id number] CORPORATIO Implanted: Qty: 2 on 07/10/2018 by Jhonathan Vale MD at [facility] documented as of this encounter Procedures Comments Procedure Name Priority Date/Time Associated Diag nosis CT SOFT TISSUE NECK WITH Routine 03/18/2020 Histo ry of Whiteside's CONTRAST 10580 1:54 PM EST sarcoma documented in this encounter Results * CT Soft Tissue Neck with Contrast (03/18/2020 1:54 PM EST) Specimen Impressions Performed At IMPRESSION: [facility] 1. Normal soft tissues of the neck. 2. Please refer to the separate report fo r a concurrently performed CT of the cervical spine. Narrative Performed At EXAMINATION: CT SOFT TISSUE NECK WITH CONTRAST [address] [facility] CLINICAL INDICATION: History of Ewings sarcoma. TECHNIQUE: Axial CT images of the soft tissues of the neck were obtained following intravenous administration of 100 cc of Omnipaque 300. Coronal and sagittal images were then acquired usin g the source data. Automated dose lowering techniques and/or adjustment a ccording to patient size were utilized for this examination. COMPARISON: CT of the soft tissues of t he neck dated 03/21/2019. FINDINGS: The presence of dental amalga m causes streak artifact that obscures portions of the mandible, maxilla and t he soft tissues of the generator rebuilder and buccal spaces and oral cavity and orop harynx thus limiting evaluation in these regions. There are no abnormally enhancing veena s in the superficial or deep soft tissues of the head and neck. The fat planes are preserved. No abnormally enlarged lymph nodes are present. The oropharynx, hypopharynx, larynx, a nd trachea are patent. The parotid glands, submandibular glan ds, and thyroid gland are unremarkable. There is interval decrease in mucosal t hickening within the maxillary sinuses. Mucosal retention pseudocysts within th e left and right maxillary sinuses are again shown. Remaining imaged portions of the paran randi sinuses and mastoid air cells are normal. There is no abnormal enhancement in the imaged portions of the brain. Imaged portions of the lungs and the me diastinum are normal. Procedure Note Interface, Received Via Radiant System - 03/18/2020 2:19 PM EST EXAMINATION: CT SOFT TISSUE NECK WITH CONTRAST 61053 CLINICAL INDICATION: History of Ewings sarcoma. TECHNIQUE: Axial CT images of the soft tissues of the neck were obtained following intravenous administration of 100 cc of Omnipaque 300. Coronal and sagittal images were then acquired using the source data. Automated dose lowering techniques and/or adjustment according to patient size were utilized for this examination. COMPARISON: CT of the soft tissues of the neck dated 03/21/2019. FINDINGS: The presence of dental amalgam causes streak artifact that obscures portions of the mandible, maxilla and the soft tissues of the generator rebuilder and buccal spaces and oral cavity and [...] enhancement in the imaged portions of the brain. Imaged portions of the lungs and the mediastinum are normal. IMPRESSION: 1. Normal soft tissues of the neck. 2. Please refer to the separate report for a concurrently performed CT of the cervical spine. 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
--- OUTSIDE RECORDS SUMMARY | 2020-05-11 20:45 | CCD ---
Author Author [facility] Organization [facility] Address Unknown Phone Unavailable Care Team Providers Care Switch Inspector Name Role Phone Jordi Montes De Oca Unavailable Unavailable BirklinJordi Unavailable Unavailable BirklinJordi Unavailable Unavailable BirklinJordi Unavailable Unavailable BirklinJordi Unavailable Unavailable BirklinJordi Unavailable Unavailable BirklinJordi Unavailable Unavailable BirklinJordi Unavailable Unavailable BirklinJordi Unavailable Unavailable BirklinJordi Unavailable Unavailable BirklinJordi Unavailable Unavailable BirklinJorid Unavailable Unavailable BirklinJordi Unavailable Unavailable BirklinJordi Unavailable [...] Unavailable Unavailable Lorri TRAN MD Unavailable Unavailable Lorir TRAN MD Unavailable Unavailable Lorri TRAN MD [...] is protected by Article 27-F of the [facility] Public Health law. If you continue you may have access to information: Regarding HIV / AIDS; Provided by facilities licensed or operated by the [facility] Office of Mental Health; or Provided by the [facility] Office for People With Developmental Disabilities. If such information is present, then the following [facility] mandated warning applies: This information has been [...] law may result in a fine or penitentiary sentence or both. A general authorization for the release of medical or other information is NOT sufficient authorization for further disc losure. Family History Family Member Name Family Member Gender Family Member Status Date o f Status Description Data Source(s) Unknown Unknown Encounters Encounter Providers Location Date Indications Data Source(s ) Outpatient Attender: Natanael SINGH 10/31/2020 12:00:[address] [facility] Outpatient Attender: Salbador Rodriguez 09/25/2020 12:00:[address] [facility] Outpatient Attender: Salbador Rodriguez [id number] 12:00:00 AM EST - 03/27/2020 03:42:01 PM EST Malignant neoplasm of bone and articular cartilage, unspecified [facility] Malignant neoplasm of bone and articular cartilage, unspecified Outpatient Referrer: Salbador Rodriguez 03/18/2020 12:00 :00 AM EST Personal history of malignant neoplasm of [facility] Personal history of malignant neoplasm o f bone Outpatient Referrer: Salbador Rodriguez 03/18/2020 12:00 :00 AM EST Personal history of malignant neoplasm of [facility] Personal history of malignant neoplasm o f bone Outpatient Referrer: Natanael SINGH 10/25/2019 12 :00:00 AM EDT Idiopathic aseptic necrosis of right femur [facility] Idiopathic aseptic necrosis of right fem ur Outpatient Attender: Natanael SINGH [id number] 10/25/2019 12 :00:00 AM EDT Presence of left artificial hip joint [facility] Presence of left artificial hip joint Outpatient Attender: Asher Koroma MDReferrer: ALECIA GRUBBS MD [id number] 10/24/2019 12:00:00 AM EDT - 10/24/2019 03:50:58 PM EDT follow up [facility] follow up Outpatient Attender: Asher Koroma MD 10/16/2019 12:00:00 AM EDT [facility] Outpatient Attender: Salbador Zendejas-ONCCACTR 020 12:00:00 AM EDT - 10/05/2019 02:26:07 PM EDT Personal history of malignant neoplasm of [facility] Personal history of malignant neoplasm o f bone Outpatient Referrer: Alecia SINGH 09/27/2019 12:00 :00 AM EDT Malignant neoplasm of vertebral column [facility] Malignant neoplasm of vertebral column Outpatient Referrer: Alecia SINGH 09/27/2019 12:00:00 AM EDT [facility] Outpatient Attender: Asher Koroma MD 07/17/2019 12:00:00 AM EDT [facility] Outpatient Attender: Salbador Zendejas-ONCCACTR 019 12:00:00 AM EST - 03/30/2019 04:06:52 PM EST Malignant neoplasm of vertebral column [facility] Malignant neoplasm of vertebral column Outpatient Attender: Salbador Rodriguez 03/23/2019 12:00:00 AM EST [facility] Outpatient Referrer: Alecia SINGH 03/21/2019 12:00 :00 AM EST Malignant neoplasm of vertebral column [facility] Malignant neoplasm of vertebral column Medications Medication Brand Name Start Date Product Form Dose Route Admi nistrative Instructions Pharmacy Instructions Status Indications Reaction Description Data Source(s) iohexol (OMNIPAQUE) 300 MG/ML contrast injection 100 mL [id number] 2403/18/2020 01:00:00 PM EST 100 mL Intravenous completed 100 mL, Intravenous, 1 TIME IMAGING, [facility] 03/18/20 at 1300, For 1 dose, Imaging Protocol [facility] Medication administered onsite Ibuprofen 800 MG Oral Tablet Ibuprofen 800 MG Oral Tab let (MOTRIN) Ibuprofen 800 MG Oral Tablet (MOTRIN) 03/12/2020 12:00:00 AM EST 800 mg Oral active Take 800 mg by mouth every 8 (eight) hours as needed For Pain [facility] 500 mg 03/11/2020 12:00:00 AM EST capsule 12 TAKE FOUR CAPSULES BY MOUTH 1 HOUR PRIOR TO DENTAL PROCEDURE TAKE FOUR CAPSULES BY MOUTH 1 HOUR PRIOR TO DENTAL PROCEDURE SOLD: 03/12/2020 [facility] iohexol (OMNIPAQUE) 300 MG/ML contrast injection 100 mL [id number] 2409/27/2019 11:00:00 AM EDT 100 mL Given by IV completed 100 mL, Given by IV, 1 TIME IMAGING, [facility] 09/27/19 at 1100, For 1 dose [facility] Medication administered onsite Ibuprofen 800 MG Oral Tablet Ibuprofen 800 MG Oral Tab let (ADVIL,MOTRIN) Ibuprofen 800 MG Oral Tablet (ADVIL,MOTRIN) 03/30/2019 12:00:00 AM EST 800 mg Oral active Take 1 tablet by mouth every 8 (eight) hours as needed for Pain [facility] 800 mg 03/30/2019 12:00:00 AM EST tablet [...] at 1530, For 1 dose, Imaging Protocol [facility] Medication administered onsite Insurance Providers Payer name Policy type / Coverage type Policy ID Covered green party ID Covered green party's relationship to alejo Policy Alejo Plan Information [employer] EMPLOYEE PROGRAM [id number] EXCELL C [id number] Child [id number] MVP H [id number] Self [id number] MVP HEALTH CARE HEA [id number] P [id number] MVP HEALTH CARE [id number] [id number] MVP HEALTH CARE O [id number] S [id number] MVP H [id number] Self [id number] MVP MCDHMO [id number] SO2 [id number] MVP Select Care Commercial [id number] Family Dependent [id number] MVP Commercial Family Dependent [facility] PHY [id number] FA2 [id number] Problems, Conditions, and Diagnoses Code Display Name Description Problem Type Effective Dates Data Source(s) C41.9 Malignant neoplasm of bone and articular cartilage, 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, unspecified Diagnosis 03/27/2020 03:21:31 PM EST [facility] Z85.830 Personal history of malignant neoplasm o f bone Personal history of malignant neoplasm of bone Diagnosis 03/18/2020 12:49:20 PM EST [facility] follow up follow up Diagnosis 10/24/2019 03:08:24 PM ED [facility] Surgeries/Procedures Procedure Description Date Indications Data Source(s) CT CERVICAL SPINE W/CONTRAST MATERIAL CT CERVICAL SPINE WIT H CONTRAST [id number] Routine 03/18/2020 1:55 PM EST History of Whiteside's sarcoma 03/18/2020 01:55:12 PM EST Histor y of Whiteside's sarcoma [facility] History of Whiteside's sarcoma CT SOFT TISSUE NECK W/CONTRAST MATERIAL CT SOFT TISSU E NECK WITH CONTRAST [id number] Routine 03/18/2020 1:54 PM EST History of Whiteside's sarcoma 03/18/2020 01:54:17 PM EST Histor y of Whiteside's sarcoma [facility] History of Whiteside's sarcoma CT CERVICAL SPINE W/CONTRAST MATERIAL CT CERVICAL SPINE WIT H CONTRAST [id number] Routine 09/27/2019 11:17 AM EDT Whiteside's sarcoma of vertebra 09/27/2019 03:17:07 PM EDT Whiteside 's sarcoma of vertebra [facility] Whiteside's sarcoma of vertebra BLOOD COUNT COMPLETE AUTO&AUTO DIFRNTL WBC COUNT CBC AND DIFFER ENTIAL STAT 03/30/2019 3:25 PM EST Whiteside's sarcoma of vertebra 03/30/2019 08:25:00 PM EST Whiteside 's sarcoma of vertebra [facility] Whiteside's sarcoma of vertebra COMPREHENSIVE METABOLIC PANEL COMPREHENSIVE METABOLIC PANEL STA T 03/30/2019 3:25 PM EST 03/30/2019 08:25:00 PM EST [facility] COMPREHENSIVE METABOLIC PANEL COMPREHENSIVE METABOLIC PANEL STA T 03/30/2019 3:25 PM EST Whiteside's sarcoma of vertebra 03/30/2019 08:25:00 PM EST Whiteside 's sarcoma of vertebra [facility] Whiteside's sarcoma of vertebra Results ID Date Data Source [id number] 04/08/2020 12:08:17 PM EST [facility] Name Value Range Interpretation Code Description Data Nisha rce(s) Supporting Document(s) Progress Note [facility] LIQOCt2mDzSDCwRt32/CWTruEGSiy8SfRYfmLWm6XZvtGYIwL8XwAGU1qC8sKKA2ECtBVdReVqVyRbS2 lbm [file] AgICAgICAgICAgICAgICAgICAgICAgICAgICAgICAg CSZnPAMwIRRuTWJdREYrCISkQSEkSTHgPTBnQUVdHLKgBUKmRIQgNIGhJHYhRCFkCJReLW0YBPRjLEZb ICAgICAgICAgICAgICAgICAgICAgICAgICAgICAgICAgICAgICAgICAgICAgICAgICAgICAgICAgICAg ICAgICAgICAgICAgICAgICAgICAgICAgICAgICAgIC DqKE6ZNJWmHYMyKRNgGMNeREYkIMDiACUtHJOvVUKsEDGpTQJeNTZmQCInCFAxTSSqXFTpATHsOZFvAB OjAWKjYSKgMBAdOWNfMGVaIUWzVIFvZXImERZoPSRfXZXlZELjTQHnJAAbOA6LHKXvHGShTHVhSPQeUZ AgICAgICAgICAgICAgICAgICAgICAgICAgICAgICAg LMXfWQAyGLYpZKFwJNMeBIZxFMVyFBVmAPZuNKPrIZAdXARqPDSmNVCiQIUcVXLmBUKoHHYmPG1DNGKq ICAgICAgICAgICAgICAgICAgICAgICAgICAgICAgICAgICAgICAgICAgICAgICAgICAgICAgICAgICAg ICAgICAgICAgICAgICAgICAgICAgICAgICAgICAgIC JlJYOhMW6IQIFfYJEqNMXrYFCjEIXhESQuBRIdQHOnAKSnRJVhCNRbVXIzPCZdCMFeMPJvYCMvPZZnBS VmYWZsHMNaWJLuRZKiUWOmHQNjGNZiNTTfVLNmJEFxSZIfCHVeBPDkCRDyZNUuFR9MKHPaEZGqYRPvVJ AgICAgICAgICAgICAgICAgICAgICAgICAgICAgICAg CTOkZIYoGLTuPZWnEOYjAGNmYXPzWLJxCDAiWGEpEJPtIRQrMVAbTFZgWOXvIWJmBCVxYEXvDUKcDS1Z ICAgICAgICAgICAgICAgICAgICAgICAgICAgICAgICAgICAgICAgICAgICAgICAgICAgICAgICAgICAg ICAgICAgICAgICAgICAgICAgICAgICAgICAgICAgIC UdAQNvXRUwPU9CZMJoNAWdAQEkBGBnTOKzPGDyTPXvFWJmULRfVUVuHKNrFPEqTLUgGOHdPMUiPCMeLG MbDNWdJVPaFAZoLZRvCJNnSJRwUZUkOKEaTVGqUVKxMGNiXSFbNPFgOHAvBQBhTSCfQR2ZPO87bXTjp2 U9FVVjJD1xmvm/Sq0NRZfbyiKohONiCR3MGjLtXC3l hn3FZjPuFW9fmy4KWGzJVmLfC9A1dFTnKDUpICRYLuCcS83bLCitVt39OSauXBAxTlNxLHv0Of9YYlCq Y9wsBDQlSoH3HRIhVnF4HERhUoRsMMpkDZ3Hb1WpaNWjTJo+Bg6ZXU5cv6WmSNpwLLVwUU5wnt5ISZmD YePsU4YzsxL1YSQ7LIQgXm4SSTTfBXCqlSTwTBYrRN JJXpPpG7BydT44NCPVOw7+OGydhsGkPqtSMsD0OGQdf3FiKYh7IW0VTJJfVRj0nMIfFFToG4Ymq6LxTb 59ZNPwYtdtHrVhlaWvTTHBUDOimHUtoydgBCIvUPEsBIDbAv0sDEHoLDGhGcCsWCBGAP9OMHSlKRGkcH GkDENzUVIUNV6FRPdiVWF8EVNgiyKpnSKoPKpzWX0L YXJlbnQgMjQgMCBSDQo+Rb6IXQ5mj0DwXUulLsMdGT6kya4CDRnZJlYtN3R3sJSvU3V2ZVqwKv0TDLFd KMAdKdNzTYJVAXjeFL2BLY2bhtU3QL7VnUScABLiUKMxyFMzBZz0C23eaPEcXRlmCB1NDDG+Zamzam+Pg0K YQWeRKCbSGJkOgOxUXRVDjPhJ2BtA7KAy0UtI0HlAX 41nPiiweOqEFpsWI6UQF9eFVGhHCWNVE1NtUZhzI6iyoOdVFEqOISHQqAgA46mjVPxLULpBHLiWKYyFk 3FIIOdB1UhslKhmWfwsqEzDDXhHERCTO0KGLcvvyLffXAizXczFI40bBxxQG9MEl6NCeBhEE2ewf0KhJ RnUq4BDTGdTp7FEWIzNCIkMRKtTZI1DCOeEbUpYSdz IYLbWBLxCWE5AQXaIUSyTW9LSoMuAWUpUoK2TSjoISPaVACsam1RHTQgCTLwKUO7BuZqYDSdVMDmGCay WSBgFYQdMJZ4ODGcZABoDF4CHlEkKGVeOYG7PDLaIZDbVFWaxd4PZNGeDDLfFAt4FWNeGJSvPHXrRSga GCGvFHD8SES1VZMjRSCeAX8GNwKbAJUuFXkvAwhoJI UaOXMkmb9QRDIjPLGuMak6RlShPQBmEZQbGKkjITKmBZW2AEudLWYcXEWzQG0HPnAyLNNkOLorWrMjUM RhEUQaoe1ZGKXxZUAfCUZrDcWjOTDuSMVoQQyoVMOzTGK9OOR3SYXpRSDdOF6RHsRsZHMgDKn1SkXjAU BoMMSuke6TBHFvGBWhJPF7ViYmZNBnNYJcJCcbMBAm NEIlSVk5DVUiTLUpML8WYpDeESQvWhF8NDsxUVUmVYXlfo6WQDIpWGXjBXlgNsYwOCSiLGJdJUwjODZu CTLxEOvbFUCqNFSuWH0KRrRqMEBcYcNcDdLwMQDrKBZnqy1XDHLfECEwObQpVtOrFBZmOAZwSOtoTVYk KBExRhv9LPNiQHHcPT4ANxJiBHCaFsQ5RIMrPJDhMK Sogg8ASBTiXMMcLOH5AyDfPGIdDPLpFShdQAFtVOQ9RgM3LBRqGJQkOZ6RWtRzYAPaEwF5LfvhXKZmYK Nhzk1MaUXvnUuebn3FTEhELd9EwBfhHEA0SQroTt8faVMsGpSzIUDWVy0PehZqDRRiFGHSFXhlPCUoTH VnHUg0KtBzCOJnINOoGEvjBHWrYFHmLdOpGaUuQMC4 EtE1XOGpKMyoCOXzIJAhESTuEUT6WYVoImKaYLPhA5RaGap+LA7pPPs+Cn1Mh6AylaY4gmHzJKebINgi Mx3VWGFWF0JTLm== ID Date Data Source [id number] 03/18/2020 02:32:09 PM [facility] CT CERVICAL SPINE WITH CONTRAST [id number] AL RESULTInterpreted by:Davy Stanley MDEXAMINATION: CT CERVICAL SPINE WITH CONTRAST [id number] INDICATION: History of Whiteside sarcoma.TECHNIQUE: Axial CT [...] rce(s) Supporting Document(s) ID Date Data Source [id number] 03/18/2020 02:19:22 PM EST [facility] CT SOFT TISSUE NECK WITH CONTRAST [id number] INAL RESULTInterpreted by:Davy Stanley MDEXAMINATION: CT SOFT TISSUE NECK WITH CONTRAST [id number] INDICATION: History of Ewings sarcoma.TECHNIQUE: Axial CT [...] maxilla and the soft tissues of the citizenship instructor and buccal spaces and oral cavity and [...] rce(s) Supporting Document(s) ID Date Data Source [id number] 01/02/2020 03:10:12 PM EDT [facility] Name Value Range Interpretation Code Description Data Nisha rce(s) Supporting Document(s) Progress Note [facility] FWLKRy2hOrXVTlYm38/OHOmlXTYzy8MiQEuwJLh3DEywLCZoB6KpPWL4nG2bAVR0IOyZGuLpWcUsSXH1 lbm [file] jNIosUvhXSQOCwHsUHs7TAdlUCHXCx9O ID Date Data Source [id number] 10/26/2019 08:40:21 AM EDT [facility] XR HIPS- BILAT, 3-4 VIEWS [id number] RE SULTInterpreted by:Rashawn Contreras, MDPELVIS AND BILATERAL [...] rce(s) Supporting Document(s) ID Date Data Source [id number] 10/25/2019 11:50:06 AM EDT [facility] Name Value Range Interpretation Code Description Data Nisha rce(s) Supporting Document(s) Progress Note [facility] TBBRYq6hMuCCOyLp67/MWYqeRHEiq2TxGIhrRMr4JRmnLFFzC8MwGBN7fS1uHFP9JJhJDzFdVlLqEyZs lbm [file] ICAgICAgICAgICAgICAgICAgICAgICAgICAgICAgICAgICAgICAgICAgICAgICAgICAgICAgICAgICAg ICAgICAgICAgICAgICAgICAgICAgICAgICAgICAgIC AgICAgDQogICAgICAgICAgICAgICAgICAgICAgICAgICAgICAgICAgICAgICAgICAgICAgICAgICAgIC AgICAgICAgICAgICAgICAgICAgICAgICAgICAgICAgICAgICAgICAgICAgICAgDQogICAgICAgICAgIC AgICAgICAgICAgICAgICAgICAgICAgICAgICAgICAg ICAgICAgICAgICAgICAgICAgICAgICAgICAgICAgICAgICAgICAgICAgICAgICAgICAgICAgICAgDQog ICAgICAgICAgICAgICAgICAgICAgICAgICAgICAgICAgICAgICAgICAgICAgICAgICAgICAgICAgICAg ICAgICAgICAgICAgICAgICAgICAgICAgICAgICAgIC AgICAgICAgDQogICAgICAgICAgICAgICAgICAgICAgICAgICAgICAgICAgICAgICAgICAgICAgICAgIC AgICAgICAgICAgICAgICAgICAgICAgICAgICAgICAgICAgICAgICAgICAgICAgICAgDQogICAgICAgIC AgICAgICAgICAgICAgICAgICAgICAgICAgICAgICAg ICAgICAgICAgICAgICAgICAgICAgICAgICAgICAgICAgICAgICAgICAgICAgICAgICAgICAgICAgICAg DQogICAgICAgICAgICAgICAgICAgICAgICAgICAgICAgICAgICAgICAgICAgICAgICAgICAgICAgICAg ICAgICAgICAgICAgICAgICAgICAgICAgICAgICAgIC AgICAgICAgICAgDQogICAgICAgICAgICAgICAgICAgICAgICAgICAgICAgICAgICAgICAgICAgICAgIC AgICAgICAgICAgICAgICAgICAgICAgICAgICAgICAgICAgICAgICAgICAgICAgICAgICAgDQogICAgIC AgICAgICAgICAgICAgICAgICAgICAgICAgICAgICAg ICAgICAgICAgICAgICAgICAgICAgICAgICAgICAgICAgICAgICAgICAgICAgICAgICAgICAgICAgICAg ICAgDQogICAgICAgICAgICAgICAgICAgICAgICAgICAgICAgICAgICAgICAgICAgICAgICAgICAgICAg ICAgICAgICAgICAgICAgICAgICAgICAgICAgICAgIC KlXZPvVEBaUKLwGMWhBIv2Q1kpFGWzBQKjOW3hRKx3Cl9+KZiQHgVpLEG1slLjfE7OAO1uw5BoODixUQ Pzc1QeASu4IP6ZALRdOAldOM8OFGpcvj4PPDAzUHTnaQQEd3xqOuHoTGM5SXDnAzqtMM8BTBAjE6ebxd HcQYBwVLCGSOheINEMKL0AKuEnG8XleO55JPSSKv0+ YHhfefUvXppOWyP5ZCUhe3GtNOy3TF5EMHAbBplvs7QdBRKrSFGXTJhaYF6EBEK1XHJhEBDiJm0ITFMk U991rtDuWY4GBk8YCzPaHC5skt6NUDXpLLZnTmpNHlx8EVgjNG6JnTBcWMrHjj1nkkSovqXAy9XfdnIz yUNVAF8xUHnhCLT8mLXyBnzrw3ilvcmmTSEeGVPmOn 9eWxQmAsOhCOG1PAZySB6jHTxeAB5KZYR1PWrhKCQiWHBsV3nAQiJrSQFjWZUgtKrqPX0SBeItB2Nwos VudCAzOSAwIFINCj4+ZThnnqEiNtjOOpNhWAOpu9WuWCp9BD5VHPYbWYcbBI3OHTNnnT2uSMxvOO2HVi IuMjFhSTEZRkXqF05tdTXlYPs5M3ZqFoLhDCKkLobi ZXMgPDwvTmFtZXMgWyBdDQogID4+ID4+SFlfSC0SNRdicvCtNUEuKs4AAYKjTSHaYM6fGKTfHXWnF6Y3 bMhsXZPNLzBtG3uzdagvFA0gCOXfM577uUtehmMpQAP1QELiTz6HPAAiFRQ3TEOlqKMjMvweRQQLPSbb OH2EoQUqYEB0sW0wHCfvRXHhVXLwW5cJDrXnjCbdDK 51bGwgbnVsbCBdDQo+Ay8WZM8bs8ViDHj0zyHgEGbrWEAfDMbfKAVhUBDbTNHdIRL5BQK9FCCRGyXzMV AoTNByBOonBLCpYIEnmt1FFDXdSYQ1YFJtHGOhYVAnRWQlRNkxHAYxGOFfTZJaHITiOOZuHE1MRnPoDF JoHSLyKHdqSQEsPOHewl3AZSTcNOBkYiheRaSuOACq HJKyCVfwYONxBKB9AIUuYVOkWCKvAW3PFwTtXMJnEYMxMaLiXPQnHHTyns5LITWrBCRcCKJfJPQnGUHm YVIeJPfgMMHoPCJ0Dgx1GUXaWZWwRZ4TIiFdHFNyWSW2MZHwEQTgYVKpjt9HKZPiEPRcPjJ2FVVuRBNe VKZuABovCGDqRWB9RwQpWASkVGKmVH6VOtPsUXMvIS o7HjXqRQKfTRIzgk7ZXSYvKBUvCTTnLdMyAPSsAUUaQJjzLDCqBGI8XYQdTKTqFZPaMC0YDfBgKQItGI s4LyioWXRkDPMddf0KWTZzKMWwTNm7BaIbIQVyLQXcJFkmKAJeXAVrToS1FIYiYRShOS4ZWeGdONMtKr YrPXOvDKKwREQvbi7TPVJeXGFfDXOxTmAvYPMjPNSd EJycUQOzIKBxRPJ4XGQdYJTdBM6ADuTpMNQsLlK2IwubGHFiDGXvuj6TUFLbNZZkZmE2ArSxDYMzDGLq NHhoAQErXUB1QQUzGDTkFEZoYQ6NYtYaZAWlEiO9FoTiTADlREAbas4IQMLoUWBbKyC2QBSiBKYnXILo AUfnCRUhNZD5PcQ6PDLwYJQxBF8GLoFdTEEqPLQqDW RmLJMaFLVdii4CBZGgXIK6JsNvOUIwNOIrTJNrDNsaIEAqHNEaGpEvZVTiIFJhHU9MNkKgUCPxGGG2Pn OpNLEbSUSmhx3KIADhDKG7UtDxZTNgGNUfMXLbDShdSNOxAJEaQfSmVZPaAANsMQ6WTwTlOTRbNIB0NQ VsBCTgLWEyjk5SVSFbFJU9DtSuEoBlONQeEDSdRGws BTNbZDWrQAExBHBaXBUkSM7QHfIkAZVpGMPuOSVwGWMkEBTblu4UEZNnTLZ6JWT6NNGfQOJqXSEwBQix MJNbWRQeXXG1TYOoLRKkYB5VWgJrEBSvVRRuQXZvZSPrTHWyaf9NAJGfPTS6XlE6PYEuCIZwPBLuVEe8 tiQryUJxZDd0ZR5WZ0NflrAhQKDDUt3Ho930GPAmVF BgZs5SE9qcId5zZIHsUDGIIi2HZKz0VME2KEDgROF2QBWpN3H8EWKnRnyfTjLzQeAiFmH5YSP+IDwxZj AyUIBlPBRiJYJ7Aag3KNDeJ9R5OFL6YJFnZgieLZ0sZAWDVc4+GJvnaEVdmJkbCBGQMcWtTRZ3VJzaRX VPRg0K ID Date Data Source [id number] 10/16/2019 10:06:32 AM EDT [facility] Name Value Range Interpretation Code Description Data Nisha rce(s) Supporting Document(s) Progress Note [facility] CVWNEa4mGkSBLiYw89/MWWpnSOVad0UnULkvAIa7KIhiSYPhS2IrBUI7kP6gUMV4RRlSHwIyGzFnZpJh lbm [file] AFzqCJrcCCYsNaX0QUL4XhPqWW0JJf8RFyN9RLP2uXAzJi4ITtVtINECKyTtSG3DIZk= ID Date Data Source [id number] 09/27/2019 12:10:40 PM EDT [facility] CT CERVICAL SPINE WITH CONTRAST [id number] AL RESULTInterpreted by:Rosenda Boss MBBSEXAMINATION: CT cervical [...] rce(s) Supporting Document(s) ID Date Data Source [id number] 04/02/2019 11:37:27 AM [facility] Name Value Range Interpretation Code Description Data Nisha rce(s) Supporting Document(s) Progress Note [facility] JQAEYl7eDhQEAoGv57/UIUgbWOTvs7IjRUcaIFl2ULnvIASuN2UlYGR1tE5xTDW4RZcDIhOdNHzfVxJ1 lbm [file] AgICAgICAgICAgICAgICAgICAgICAgICAgICAgICAgICAgICAgICAgICAgICAgICAgICAgICAgICAgIC AgICAgICAgICAgICAgICAgICAgICAgICAgICAgICAg QA1FZUOdNCRsJPEjXIVxJJFgCMXaTYNzABYvEYSmMZBcZJJkCRQxKYRnOIDoZWKzNAXpSXHpXIXfDNOt KUNyGMLtBQOiVADrDZUrNSRnBXXdNRDfFBVjKPDaAMPwLSByWYXxYTHaBF6PORAqMCRtJDXqHXElLFRm ICAgICAgICAgICAgICAgICAgICAgICAgICAgICAgIC DtOVXaCGUrRUVxMREbEWOtGHFiLOHoYWPrMOUqQFXxRNCvJRKxXJDmXHYxJSRsIYRjQVMiOW4CXLZtGQ AgICAgICAgICAgICAgICAgICAgICAgICAgICAgICAgICAgICAgICAgICAgICAgICAgICAgICAgICAgIC AgICAgICAgICAgICAgICAgICAgICAgICAgICAgICAg ZKRnAJ6PVDNeFQGxJRNhCWVuUXIoMKYkNFFuHGVuOGYrHUDyWKKpHOEnRGKiUVGlYJXuSNIgIUFoCZNi VEYlIPMqGLCkODTlZFLyJDLvIMYhWXAvLGJiTOAtDODnXFPyXGXhVEGzCGGcTO9FBENcPMZbQPSjUTIj ICAgICAgICAgICAgICAgICAgICAgICAgICAgICAgIC WgBBGsRCMlRXHvSRRpVKPcTDOjEKGjXKKcEKLhGRWzRSSaFKUtBNCyXAEcPEQrEYVoOYBcHKUpBV5AQL AgICAgICAgICAgICAgICAgICAgICAgICAgICAgICAgICAgICAgICAgICAgICAgICAgICAgICAgICAgIC AgICAgICAgICAgICAgICAgICAgICAgICAgICAgICAg OSLtATUdVW0RWAScQPEdKPMkWPDjHINhNQWzSFXdKUPgUDFyLHWlQOHdDDAzQNYsPQMeZUPjYNUaUCIm IYLpCKOfNDKqMZMmDAMxFTShSJSoUCVhYPNgXQRhBUUjEMDsMBHmNOLgTKDuXLZlHX9AWQVjXSVeIBHj ICAgICAgICAgICAgICAgICAgICAgICAgICAgICAgIC AgICAgICAgICAgICAgICAgICAgICAgICAgICAgICAgICAgICAgICAgICAgICAgICAgICAgICAgICAgIA 0KICAgICAgICAgICAgICAgICAgICAgICAgICAgICAgICAgICAgICAgICAgICAgICAgICAgICAgICAgIC AgICAgICAgICAgICAgICAgICAgICAgICAgICAgICAg OUQhDGUaWDBrCK3LQS83iLAso0K4PHAzOX6nbli/Xl5CREnnrkNoxQEqXZ8LToKlRG0jkz2OCjSjCP9x lg3CPAyMZbKqD1I3oHSnGSFnRKLUQkTgG46uQOyxCt54XCtmMHMsAnKtSPk6Vq1CFdCqH8kxUYSsWeO4 CLLkGtEgFVnoOM1Um2FjsOSrBSq+Ov7VBW7ny1UoZV pfYXIpTT5ehd8EXQaRPaTkX2HgocF4DVJsZVOfJg4FJDCbXVPxcJFnSEGlWCCSHjYyV0NllG84DSYDXf 4+KBhjufNgYqyTLuLmEXDaw6GiPDj2VU0IGNWmONo7oFOeYVEwE1Wmj8CrKs08EHJjWruvEeGdglEwJB DHNVXghPCrtyryFWGvZWVjGKOfFf5fWTO0EVNgAxCu FPGSUS0EPDMuNUIzoJZjGEOoBFIHDD2LXYdrLRM1BZWianPbaDPhDQlbWU0DSRUqsdMwEDkjWSTRFOl+ Zq4IFQ8sw8KcWHvwNYKbWQ5xgm5VTFbMVyAhS1A4rIGpO1T4LGusZq6UPYDyMTFjMHrlXSRVXUnbWL3I SF0sxhE9UI4EwPZrOYLlKVSrfGQqTYb7C04uoPWxWX bhJO3PWVT+Zamzam+Li7PJREjIOIvGPIdIgMvPXPUWgTbB1MmR2SZb0UbX0IrJQ20lSouxfNtBNolHI6IOR 8oESNtJULESZ7MuPWcdW0lheKhLYGnADNBLtRbZ94vdZWtYEGnIMU7XCWdEk9WBZStZ1IhalSziKettd GxNYBsDBQUDR5JFAnjfiFtcQBelMnvCI76pFtwEP0G Dk3MPtYpHA0rul8FgILwKs3XQHYiQq1OLAIzJMXsBMPxLKH4TAHxPcIgVVehTBZgAHLcERM8YJTtHNZa HG0YAiJqHZQuXIr5QmKtNMZrCHCnpi4MIBEhKWSzJUM4NrJvMFGfPYHxIDqiFLUiWFCnWJK0ZLKyLRLy VV1NQtZqPVKoXTHoHZKbPTGkSGMklx0RUNXcUDKqJs Y8CYKiASCwDJQcFKweXSItYGLlWFY9UFXaEPFkCO0CWxZmFKYzKNF5EPIeQVIcLAAsgp0OIZVmOQPyUr s2QULcLRWaQWWwENkgPYAwQTC6AhK8CUVzJFXvMG4PSgCvTTZsIJW0ZPNvFVAsHDYdtr6UDBHmWBKzDZ LiAeUzYYXfHCBiYJyuJIBxLGD0JIlqDNUeMQGeYF6C IiXbQBNnQXO9BXkvNJQuQITvuq3HDBUwCEWnFdCnOsXjQFStCROeVTiiBYGuANE8JdK0MKLrJNYzAS2Y PtTfHJKsFHm3VJGfYNWxHPAejj9QHOShFHHwQnwoQlRhOUUjRBRmUFewPSAvTZS3NbJuLTNpQHXaRJ7B WdAcIKJqOYerBHMcHNGkABIedq7HDKRsZMSlSCD7Wx ZlTNXzKGBzDDn9pwOjdBQsLLt7LM1DD2PebaBiRtNFHm5Hy139EYMxDMRhWx9VN1hwCi3zKCYvTUFNBu 2PPIx9WCGnOihcIYM3AOSdJLNmGdmgBgXjWEB2BISkPvUjCYH+VGt9OESlQ4CbSbRiIKQ1RBZ3VNWtHx AwHzj9TVLyFQLcWl2jDGCIXv8+TIacsDSamDnzBVCKSxH2NaQ9HCkzJKGQPp4K ID Date Data Source [id number] 03/30/2019 04:04:19 PM EST [facility] Name Value Range Interpretation Code Description Data Nisha rce(s) Supporting Document(s) Progress Note [facility] [id number]/BNPgyAXSzu2MvEIzzEBo3XCcrJBSnV7YtNNV4rS4jMJZ0YOjNTbNbSZcwHfS3 lbm [file] [id number]== ID Date Data Source [id number] 03/30/2019 03:34:49 PM [facility] Name Value Range Interpretation Code Description Data Nisha e(s) Supporting Document(s) Leukocytes [#/volume] in Blood by Automated count 4.8 10*3/uL 4-10 [facility] Erythrocytes [#/volume] in Blood by Automated count 5.10 10*6/uL 4.6- 6.1 [facility] Hemoglobin [Mass/volume] in Blood 14.3 g/dL 13.5-18 [facility] Hematocrit [Volume Fraction] of Blood by Automated count 42.4 % 4 1-53 [facility] Erythrocyte mean corpuscular volume [Entitic volume] by Auto mated count 83.1 fL 80-96 [facility] Erythrocyte mean corpuscular hemoglobin [Entitic mass] by Automated count 28.0 pg 27-33 [facility] Erythrocyte mean corpuscular hemoglobin concentration [Mass/volume] by Automated count 33.7 g/dL 32.0-[facility] width [Ratio] by Automated count 14.5 % 11.5-14.5 [facility] Platelets [#/volume] in Blood by Automated count 267 10*3/uL 150-400 [facility] Differential cell count method - Blood [facility] Neutrophils/100 leukocytes in Blood by Automated count 52 % [facility] Lymphocytes/100 leukocytes in Blood by Automated count 36 % [facility] Monocytes/100 leukocytes in Blood by Automated count 9 % [facility] Eosinophils/100 leukocytes in Blood by Automated count 3 % [facility] Basophils/100 leukocytes in Blood by Automated count 0 % [facility] Neutrophils [#/volume] in Blood by Automated count 2.53 10*3/uL 1.8-7 .0 [facility] Lymphocytes [#/volume] in Blood by Automated count 1.70 10*3/uL 1.2-4 .0 [facility] Monocytes [#/volume] in Blood by Automated count 0.41 10*3/uL 0-0.8 [facility] Eosinophils [#/volume] in Blood by Automated count 0.12 10*3/uL 0-0.5 [facility] Basophils [#/volume] in Blood by Automated count 0.01 10*3/uL 0-0.2 [facility] Nucleated erythrocytes/100 leukocytes [Ratio] in Blood by Automated count 0 /100{WBCs} 0-0 [facility] ID Date Data Source [id number] 03/30/2019 04:56:29 PM [facility] Name Value Range Interpretation Code Description Data Nisha rce(s) Supporting Document(s) Albumin [Mass/volume] in Serum or Plasma by Bromocresol green (BCG) dye binding method 3.4-4.8 [facility] Bilirubin.total [Mass/volume] in Serum or Plasma <1.2 [facility] Calcium [Mass/volume] in Serum or Plasma 8.4-10.2 [facility] Chloride [Moles/volume] in Serum or Plasma 98-107 [facility] Creatinine [Mass/volume] in Serum or Plasma 0.70-1.20 [facility] Glucose [Mass/volume] in Serum or Plasma 70-140 [facility] Alkaline phosphatase [Enzymatic activity/volume] in Serum or Plasma 40-129 [facility] Potassium [Moles/volume] in Serum or Plasma 3.3-5.1 [facility] Protein [Mass/volume] in Serum or Plasma 6.4-8.3 [facility] Sodium [Moles/volume] in Serum or Plasma 133-145 [facility] Aspartate aminotransferase [Enzymatic activity/volume] in Serum or Plasma <38 [facility] Urea nitrogen [Mass/volume] in Serum or Plasma 6-20 [facility] Osmolality of Serum or Plasma by calculation 275-300 [facility] Creatinine/Urea nitrogen [Mass Ratio] in Serum or Plasma [facility] Bicarbonate [Moles/volume] in Serum 22-29 [facility] Alanine aminotransferase [Enzymatic activity/volume] in Serum or Pl asma <41 [facility] Anion gap 3 in Serum or Plasma 8-15 [facility] Albumin/Globulin [Mass Ratio] in Serum or Plasma [facility] Glomerular filtration rate/1.73 sq M pre dicted among non-blacks [Volume Rate/Area] in Serum or Plasma by Creatinine-based formula (MDRD) >6 0 [facility] Glomerular filtration rate/1.73 sq M pre dicted among blacks [Volume Rate/Area] in Serum or Plasma by Creatinine-based formula (MDRD) >60 [facility] ID Date Data Source [id number] 03/30/2019 04:15:12 PM [facility] Name Value Range Interpretation Code Description Data Nisha rce(s) Supporting Document(s) Albumin [Mass/volume] in Serum or Plasma by Bromocresol green (BCG) dye binding method 4.4 g/dL 3.5[facility]5.2 [facility] Bil[facility].total [Mass/volume] in Serum or Plasma 0.4 mg/dL <1.2 [facility] Calcium [Mass/volume] in Serum or Plasma 9.2 mg/dL 8.6-10.0 [facility] Chloride [Moles/volume] in Serum or Plasma 104 mmol/L 98-107 [facility] Creatinine [Mass/volume] in Serum or Plasma 0.92 mg/dL 0.70-1.20 [facility] Glucose [Mass/volume] in Serum or Plasma 102 mg/dL 70-140 [facility] Alkaline phosphatase [Enzymatic activity/volume] in Serum or Plasma 208 U/L 40-129 H [facility] Potassium [Moles/volume] in Serum or Plasma 4.1 mmol/L 3.4-5.1 [facility] Protein [Mass/volume] in Serum or Plasma 6.9 g/dL 6.4-8.3 [facility] Sodium [Moles/volume] in Serum or Plasma 138 mmol/L 136-145 [facility] Aspartate aminotransferase [Enzymatic activity/volume] in Serum or Plasma 17 U/L <40 [facility] Urea nitrogen [Mass/volume] in Serum or Plasma 14 mg/dL 6-20 [facility] Osmolality of Serum or Plasma by calculation 286 mosm/kg 275-300 [facility] Creatinine/Urea nitrogen [Mass Ratio] in Serum or Plasma 15 [facility] Bicarbonate [Moles/volume] in Serum 24 mmol/L 22-29 [facility] Alanine aminotransferase [Enzymatic activity/volume] in Seru m or Plasma 22 U/L <41 [facility] Anion gap 3 in Serum or Plasma 9 mmol/L 8-15 [facility] Albumin/Globulin [Mass Ratio] in Serum or Plasma 1.8 [facility] Glomerular filtration rate/1.73 sq M pre dicted among non-blacks [Volume Rate/Area] in Serum or Plasma by Creatinine-based formula (MDRD) >6 0 [facility] Glomerular filtration rate/1.73 sq M pre dicted among blacks [Volume Rate/Area] in Serum or Plasma by Creatinine-based formula (MDRD) >60 [facility] ID Date Data Source [id number] 03/22/2019 02:18:49 PM [facility] CT SOFT TISSUE NECK WITH CONTRAST [id number] INAL RESULTInterpreted by:Keagan Montieloma, restagingCT SOFT TISSUE NECK WITH CONTRAST [id number] COMPARISON: CT soft tissues neck 12/19/2018..NECK CT [...] (finding) completed Current non-drinker of alcohol (finding) [facility] Tobacco use and exposure 04/08/2020 12:00:00 AM EST Never used co mpleted Never used [facility] Smoking 04/08/2020 12:00:00 AM EST Never smoker completed Never s [facility] Alcohol intake 10/25/2019 12:00:00 AM EDT Current non-d poppy of alcohol (finding) completed Current non-drinker of alcohol (finding) [facility] Smoking 10/25/2019 12:00:00 AM EDT Never smoker completed Never s [facility] Alcohol intake 10/16/2019 12:00:00 AM EDT Current non-d poppy of alcohol (finding) completed Current non-drinker of alcohol (finding) [facility] Smoking 10/16/2019 12:00:00 AM EDT Never smoker completed Never s [facility] Alcohol intake 03/30/2019 12:00:00 AM EST Current non-d poppy of alcohol (finding) completed Current non-drinker of alcohol (finding) [facility] Smoking 03/30/2019 12:00:00 AM EST Never smoker completed Never [facility] Vital Signs ID Date Data Source [id number] 01/02/2020 03:10:12 PM EDT [facility] Name Value Range Interpretation Code Description Data Source(s) WEIGHT RECORDED 220 lb 220 lb [facility] ID Date Data Source [id number] 04/02/2019 11:37:27 AM [facility] Name Value Range Interpretation Code Description Data Source(s) WEIGHT RECORDED 210.2 lb 210.2 lb [facility] Patient Treatment Plan of Care Planned Activity Planned Date Details Description Data Source (s) Ibuprofen 800 MG Oral Tablet 03/12/2020 12:00:00 AM [facility] Ibuprofen 800 MG Oral Tablet 03/30/2019 12:00:00 AM [facility]
--- NOTE | 2020-05-11 21:18 | REPVR ---
PROCEDURE INFORMATION: Exam: XR Right Finger(s) Exam date and time: 05/11/2020 8:10 PM Age: 25 years old Clinical indication: Pain; Finger(s); Right; Additional info: Injured right index finger TECHNIQUE: Imaging protocol: XR Right fingers. Views: Minimum 2 views. COMPARISON: No relevant prior studies available. FINDINGS: Bones/joints: There is an acute, mildly comminuted, impacted, displaced intra-articular fracture of the head and distal portion of the proximal phalanx of the right index finger, with dorsal angulation of the distal component of the fracture by approximately 30 degrees. The fractured portion of the head of the proximal phalanx still articulates with the base of the middle phalanx at the proximal interphalangeal joint of the right index finger. Soft tissues: There is soft tissue swelling in the right index finger. No radiopaque foreign body is noted. IMPRESSION: Acute, mildly comminuted, impacted, displaced intra-articular fracture of the head and distal portion of the proximal phalanx of the right index finger, with dorsal angulation of the distal component of the fracture by approximately 30 degrees. Electronically signed by: Rodo Michael On 05/11/2020 21:17:53 PM
[2020-05-11] MEDS ORDERED: LIDOCAINE 1% MDV 20ML VIAL As Ordered ONE (21:24)
[2020-05-11] MEDS ORDERED: LIDOCAINE 1% MDV 20ML VIAL IM ONE (21:30)
== END 2020-05-11 22:10 | disposition home or self-care (01) ==
LOC: M ED 20:00
DX: S62.610A Displaced fracture of proximal phalanx of right index finger, initial encounter for closed fracture (principal); W20.8XXA Other cause of strike by thrown, projected or falling object, initial encounter; Y92.59 Other trade areas as the place of occurrence of the external cause; Y93.89 Activity, other specified; Y99.0 Civilian activity done for income or pay; Z88.8 Allergy status to other drugs, medicaments and biological substances; Z91.048 Other nonmedicinal substance allergy status

== ENCOUNTER → 2021-10-02 | Outpatient (CLI) | payer OTHER ==
[~2021-10-02] MED LIST changes: +ISOVUE-370 76% 100ML VIAL ONE; +LIDO1CRE42; -LIDO2.5C15; +ONDA-84; -ONDA8TAB10
[2021-10-02 13:31] LABS: BASO % 0.8 % (0.0-1.0); EOS # 0.1 10^3/uL (0.0-0.5); EOS % 1.9 % (0.0-3.0); HEMATOCRIT 45.2 % (42.0-52.0); HEMOGLOBIN 15.1 g/dl (13.5-17.5); LYMPH # 1.7 10^3/uL (1.5-5.0); MEAN CORPUSCULAR HEMOGLOBIN 28.4 pg (27.0-33.0); MEAN CORPUSCULAR HGB CONC 33.4 g/dl (32.0-36.5); MONO # 0.5 10^3/uL (0.0-0.8); MONO % 9.5 % (2.0-8.0); NEUTROPHILS # 2.9 10^3/uL (1.5-8.5); NEUTROPHILS % 54.4 % (36.0-66.0); PLATELET COUNT, AUTOMATED 299 10^3/uL (150-450); RED BLOOD COUNT 5.32 10^6/uL (4.30-6.10); WHITE BLOOD COUNT 5.3 10^3/uL (4.0-10.0)
[2021-10-02 14:09] LABS: ALBUMIN 3.9 GM/DL (3.2-5.2); ALT/SGPT 61 U/L (12-78); BILIRUBIN,TOTAL 0.9 MG/DL (0.2-1.0); BLOOD UREA NITROGEN 20 MG/DL (7-18); CALCIUM LEVEL 9.7 MG/DL (8.5-10.1); CARBON DIOXIDE LEVEL 26 MEQ/L (21-32); CHLORIDE LEVEL 109 MEQ/L (98-107); CREATININE FOR GFR 0.89 MG/DL (0.70-1.30); GLOMERULAR FILTRATION RATE > 60.0 (>60); GLUCOSE, FASTING 103 MG/DL (70-100); POTASSIUM SERUM 4.1 MEQ/L (3.5-5.1); SODIUM LEVEL 143 MEQ/L (136-145); TOTAL PROTEIN 6.8 GM/DL (6.4-8.2)
== END ==
LOC: M PLAIMG 09:50
PROVIDERS: ATTEND Internal Medicine Hematology & Oncology
DX: C41.9 Malignant neoplasm of bone and articular cartilage, unspecified (principal); M85.88 Other specified disorders of bone density and structure, other site
CPT/HCPCS: 36415; 70491; 80053; 85025; Q9967

== ENCOUNTER → 2022-05-03 | Outpatient (CLI) | payer BC, OTHER ==
[~2022-05-03] MED LIST changes: +ISOVUE-370 76% 100ML VIAL As Ordered ONE; -ISOVUE-370 76% 100ML VIAL ONE
== END ==
LOC: M RAD 10:03
PROVIDERS: ATTEND Internal Medicine Hematology & Oncology
DX: C41.9 Malignant neoplasm of bone and articular cartilage, unspecified (principal)

== ENCOUNTER → 2023-04-06 | Outpatient (CLI) | payer BC ==
[~2023-04-06] MED LIST changes: -LIDO1CRE42; +LIDO30CR18
== END ==
LOC: M RAD 07:53
PROVIDERS: ATTEND Internal Medicine Hematology & Oncology
DX: C41.9 Malignant neoplasm of bone and articular cartilage, unspecified (principal); R91.1 Solitary pulmonary nodule
CPT/HCPCS: 71260; Q9967

== ENCOUNTER → 2023-04-07 | Outpatient (CLI) | payer BC | LOC: M RAD 17:50 | PROVIDERS: ATTEND Internal Medicine Hematology & Oncology | DX: C41.9 Malignant neoplasm of bone and articular cartilage, unspecified (principal) | CPT/HCPCS: 70491; Q9967 ==

== ENCOUNTER → 2023-04-13 | Outpatient (CLI) | payer BC ==
[~2023-04-13] MED LIST changes: -ISOVUE-370 76% 100ML VIAL As Ordered ONE
== END ==
LOC: M WUC 10:26
PROVIDERS: ATTEND Internal Medicine
DX: M25.511 Pain in right shoulder (principal)

== ENCOUNTER 2023-06-25 07:09 | Emergency (ER) | payer BC ==
[~2023-06-25] VITALS: Ht 188 cm; Wt 111.2 kg
[2023-06-25] MEDS ORDERED: ASPI81CH33 PO (07:26)
[2023-06-25] MEDS ORDERED: IBUP-1114 PO (07:26)
[2023-06-25 08:32] LABS: BASO # 0.1 10^3/uL (0.0-0.2); BASO % 0.9 % (0.0-1.0); EOS # 0.2 10^3/uL (0.0-0.5); EOS % 2.6 % (0.0-3.0); HEMATOCRIT 40.6 % (42.0-52.0); HEMOGLOBIN 14.1 g/dl (13.5-17.5); LYMPH # 1.9 10^3/uL (1.5-5.0); LYMPH % 32.5 % (24.0-44.0); MEAN CORPUSCULAR HEMOGLOBIN 28.8 pg (27.0-33.0); MEAN CORPUSCULAR HGB CONC 34.7 g/dl (32.0-36.5); MEAN CORPUSCULAR VOLUME 82.9 fl (80.0-96.0); MONO # 0.5 10^3/uL (0.0-0.8); NEUTROPHILS # 3.2 10^3/uL (1.5-8.5); NEUTROPHILS % 55.7 % (36.0-66.0); PLATELET COUNT, AUTOMATED 312 10^3/uL (150-450); WHITE BLOOD COUNT 5.7 10^3/uL (4.0-10.0)
[2023-06-25 08:38] LABS: ERYTHROCYTE SEDIMENTATION RATE 2 mm/hr (0-15)
[2023-06-25] MEDS ORDERED: ISOVUE-370 76% 100ML VIAL As Ordered ONE (09:00)
[2023-06-25] MEDS: KETOROLAC 30 MG/ML 1ML VIAL IV ONE (09:30)
[2023-06-25] MEDS: ONDANSETRON 4MG 2ML VIAL IV ONE (10:34)
[2023-06-25] MEDS: MORPHINE 4 MG/ML 1ML VIAL IV ONE (10:34)
[2023-06-25 11:30] VITALS: BP 153/100; TEMP 99.1; O2SAT 100
[2023-06-25 11:49] LABS: RSV AMPLIFICATION NEGATIVE (NEGATIVE)
== END 2023-06-25 11:35 | disposition short-term general hospital (02) ==
LOC: M ED 07:09
DX: C72.0 Malignant neoplasm of spinal cord (principal); R93.7 Abnormal findings on diagnostic imaging of other parts of musculoskeletal system; Z85.830 Personal history of malignant neoplasm of bone; Z92.21 Personal history of antineoplastic chemotherapy; Z92.3 Personal history of irradiation; Z96.643 Presence of artificial hip joint, bilateral; Z88.8 Allergy status to other drugs, medicaments and biological substances; Z91.89 Other specified personal risk factors, not elsewhere classified
CPT/HCPCS: 70450; 72126; 72129; 73030; 73060; 80047; 85025; 85652; 86140; 87631; 96374; 96375; 99284; J1885; J2405; Q9967

== ENCOUNTER 2023-08-31 13:29 | Outpatient (CLI) | payer BC ==
[~2023-08-31] VITALS: Ht 188 cm; Wt 108.4 kg
[~2023-08-31 13:29] MED LIST changes: +ASPI81CH33 PO; +IBUP-1114 PO
[2023-08-31 14:00] VITALS: BP 128/83; O2SAT 100
[2023-08-31] MEDS: [UNRECOGNIZED DRUG - OTHER] SC ONE (14:16)
== END 2023-08-31 14:25 | disposition home or self-care (01) ==
LOC: M INFU 13:29
PROVIDERS: ATTEND Internal Medicine Hematology & Oncology
DX: C41.9 Malignant neoplasm of bone and articular cartilage, unspecified (principal); Z92.21 Personal history of antineoplastic chemotherapy; Z91.09 Other allergy status, other than to drugs and biological substances; Z88.8 Allergy status to other drugs, medicaments and biological substances
CPT/HCPCS: 96372; Q5111

== ENCOUNTER 2023-09-04 14:22 | Emergency (ER) | payer BC ==
[~2023-09-04] VITALS: Ht 185.4 cm; Wt 109.1 kg
[2023-09-04 15:12] LABS: VENOUS BASE EXCESS -0.3 (-2.0-2.0); VENOUS HCO3 24.5 MMOL/L (23.0-27.0); VENOUS O2 SATURATION 90.2 % (60.0-80.0); VENOUS PARTIAL PRESSURE O2 58.7 mmHg (30.0-50.0); VENOUS PH 7.395 UNITS (7.330-7.430); VENOUS STANDARD HCO3 24.1 MMOL/L; VENOUS TOTAL CO2 25.8 MMOL/L (24.0-28.0)
[2023-09-04 15:21] LABS: EOS % 2.3 % (0.0-3.0); HEMATOCRIT 24.4 % (42.0-52.0); HEMOGLOBIN 8.9 g/dl (13.5-17.5); LYMPH # 0.3 10^3/uL (1.5-5.0); LYMPH % 79.1 % (24.0-44.0); MEAN CORPUSCULAR HEMOGLOBIN 28.6 pg (27.0-33.0); MEAN CORPUSCULAR HGB CONC 36.5 g/dl (32.0-36.5); MEAN CORPUSCULAR VOLUME 78.5 fl (80.0-96.0); MONO # 0.1 10^3/uL (0.0-0.8); MONO % 11.6 % (2.0-8.0); RED BLOOD COUNT 3.11 10^6/uL (4.30-6.10)
[2023-09-04 15:37] LABS: INR 1.05; PROTHROMBIN TIME 13.4 SECONDS (12.5-14.5)
[2023-09-04 15:42] LABS: PLATELET COUNT, AUTOMATED 96 10^3/uL (150-450); WHITE BLOOD COUNT 0.4 10^3/uL (4.0-10.0)
[2023-09-04 15:44] LABS: CK-MB VALUE MASS < 1.0 NG/ML (<3.6)
[2023-09-04 15:46] LABS: CPK CREATINE PHOSPHOKINASE 36 U/L (46-171); MB/CK RELATIVE INDEX 2.77 (< OR =4)
[2023-09-04 15:48] LABS: THYROID STIMULATING HORMONE 0.767 uIU/ML (0.55-4.78)
[2023-09-04 15:53] LABS: PROCALCITONIN 0.27 ng/ml
[2023-09-04 15:55] LABS: ALBUMIN 3.6 G/DL (3.2-5.2); ALKALINE PHOSPHATASE 148 U/L (46-116); ALT/SGPT 122 U/L (7.0-40); AST/SGOT 22 U/L (<34); BILIRUBIN,DIRECT 0.5 MG/DL (<0.4); BILIRUBIN,TOTAL 1.2 MG/DL (0.3-1.2); BLOOD UREA NITROGEN 20 MG/DL (9-23); CALCIUM LEVEL 8.8 MG/DL (8.5-10.1); CARBON DIOXIDE LEVEL 26 MMOL/L (20-31); CHLORIDE LEVEL 106 MMOL/L (98-107); CREATININE FOR GFR 0.96 MG/DL (0.70-1.30); GLOMERULAR FILTRATION RATE > 60.0 (>60); GLUCOSE, FASTING 116 MG/DL (60-100); POTASSIUM SERUM 2.6 MMOL/L (3.5-5.1); SODIUM LEVEL 142 MMOL/L (136-145); TOTAL PROTEIN 6.6 G/DL (5.7-8.2)
[2023-09-04] MEDS ORDERED: ISOVUE-370 76% 100ML VIAL As Ordered ONE (16:29)
[2023-09-04] MEDS: POTASSIUM CHLORIDE 10MEQ SR TABLET PO ONE (16:33)
[2023-09-04 16:34] LABS: CK-MB VALUE MASS < 1.0 NG/ML (<3.6)
[2023-09-04] MEDS: KCL 10MEQ/100ML SWI (KRUN) 10 MEQ in IV 1 EA IV ONE (16:34)
[2023-09-04 16:36] LABS: CPK CREATINE PHOSPHOKINASE 39 U/L (46-171); MB/CK RELATIVE INDEX 2.56 (< OR =4)
[2023-09-04 16:49] LABS: MAGNESIUM LEVEL 1.9 MG/DL (1.8-2.4)
[2023-09-04] MEDS: ONDANSETRON 4MG 2ML VIAL IV ONE (17:36)
[2023-09-04] MEDS: ACETAMINOPHEN TAB 650MG DOSE (2X325MG) PO ONE (20:45)
[2023-09-04 22:30] VITALS: BP 147/83; TEMP 97.9; O2SAT 94
== END 2023-09-04 22:46 | disposition left against medical advice (07) ==
LOC: M ED 14:22 → EDBD 14:22 → M ED 22:46
DX: R09.02 Hypoxemia (principal); C41.2 Malignant neoplasm of vertebral column; Z91.048 Other nonmedicinal substance allergy status; Z88.8 Allergy status to other drugs, medicaments and biological substances; Z92.21 Personal history of antineoplastic chemotherapy; Z96.643 Presence of artificial hip joint, bilateral; Z79.82 Long term (current) use of aspirin; Z79.1 Long term (current) use of non-steroidal anti-inflammatories (NSAID); Z53.9 Procedure and treatment not carried out, unspecified reason
CPT/HCPCS: 71045; 71275; 80048; 80076; 81001; 82550; 82553; 82803; 83605; 83735; 83880; 84145; 84443; 84484; 85025; 85049; 85055; 85610; 86850; 86900; 86901; 87040; 87486; 87581; 87633; 87798; 93005; 93041; 94760; 96374; 96375; 99285; J2405; Q9967

== ENCOUNTER 2023-09-26 13:35 | Outpatient (CLI) | payer BC ==
[2023-09-26 14:00] VITALS: BP 132/90; O2SAT 99
[2023-09-26] MEDS: [UNRECOGNIZED DRUG - OTHER] SC ONE (14:25)
[2023-09-26 14:40] VITALS: BP 126/93; O2SAT 100
== END 2023-09-26 14:40 ==
LOC: M INFU 13:35
PROVIDERS: ATTEND Physician Assistant Medical
DX: C41.9 Malignant neoplasm of bone and articular cartilage, unspecified (principal); Z92.21 Personal history of antineoplastic chemotherapy; Z88.8 Allergy status to other drugs, medicaments and biological substances; Z91.89 Other specified personal risk factors, not elsewhere classified
CPT/HCPCS: 96372; Q5111

== ENCOUNTER → 2023-10-05 | Outpatient (REF) | payer BC ==
[2023-10-05 17:32] LABS: HEMATOCRIT 28.6 % (42.0-52.0); HEMOGLOBIN 9.2 g/dl (13.5-17.5); MEAN CORPUSCULAR HEMOGLOBIN 28.9 pg (27.0-33.0); MEAN CORPUSCULAR HGB CONC 32.2 g/dl (32.0-36.5); MEAN CORPUSCULAR VOLUME 89.9 fl (80.0-96.0); PLATELET COUNT, AUTOMATED 192 10^3/uL (150-450); RED BLOOD COUNT 3.18 10^6/uL (4.30-6.10); WHITE BLOOD COUNT 13.8 10^3/uL (4.0-10.0)
[2023-10-05 19:18] LABS: ATYPICAL LYMPH 2 % (0-5); BASOPHILS 1 % (0-1); EOSINOPHILS 2 % (0-3); LYMPHOCYTES 6 % (16-44); METAMYELOCYTES 1 % (0-0); MONOCYTES 3 % (0-5); MYELOCYTES 3 % (0-0); NEUTROPHILS 76 % (28-66); PLATELET ESTIMATE NORMAL (NORMAL)
[2023-10-05 19:19] LABS: ANISOCYTOSIS 1+; MICROCYTOSIS 1+; POLYCHROMASIA 1+
== END ==
LOC: M LABWUC 16:24
PROVIDERS: ATTEND Dentist
DX: C40.01 Malignant neoplasm of scapula and long bones of right upper limb (principal)

== ENCOUNTER → 2023-11-09 | Outpatient (CLI) | payer BC ==
[2023-11-09 16:15] VITALS: BP 128/82; O2SAT 100
[2023-11-09] MEDS: [UNRECOGNIZED DRUG - OTHER] SC ONE (16:37)
[2023-11-09 17:00] VITALS: BP 129/81; O2SAT 100
== END ==
LOC: M INFU 16:00
PROVIDERS: ATTEND Physician Assistant Medical
DX: C41.9 Malignant neoplasm of bone and articular cartilage, unspecified (principal); Z88.8 Allergy status to other drugs, medicaments and biological substances; Z91.048 Other nonmedicinal substance allergy status
CPT/HCPCS: 96372; Q5111

== ENCOUNTER 2025-03-06 18:45 | Emergency (ER) | payer BC ==
[~2025-03-06] VITALS: Ht 188 cm; Wt 105.9 kg
[~2025-03-06 18:45] MED LIST changes: -IBUP-1022 PO; +IBUP600T42 PO
[2025-03-06 22:00] LABS: BASO # 0.0 10^3/uL (0.0-0.2); BASO % 0.4 % (0.0-1.0); EOS # 0.0 10^3/uL (0.0-0.5); EOS % 0.3 % (0.0-3.0); LYMPH # 1.2 10^3/uL (1.5-5.0); LYMPH % 12.3 % (24.0-44.0); MONO # 0.8 10^3/uL (0.0-0.8); MONO % 8.0 % (2.0-8.0); NEUTROPHILS # 7.3 10^3/uL (1.5-8.5); NEUTROPHILS % 78.6 % (36.0-66.0); PLATELET COUNT, AUTOMATED 519 10^3/uL (150-450)
[2025-03-06] MEDS: ONDANSETRON 4MG/2ML VIAL IV ONE (22:14)
[2025-03-06] MEDS: MORPHINE 4 MG/ML 1 ML VIAL IV ONE (22:14)
[2025-03-06 22:22] LABS: INR 0.99
[2025-03-06 22:37] LABS: ALT/SGPT 51.0 U/L (7.0-40); AST/SGOT 59.0 U/L (<34); CALCIUM LEVEL 9.6 MG/DL (8.5-10.1); CARBON DIOXIDE LEVEL 21.0 MMOL/L (20-31); CHLORIDE LEVEL 107.0 MMOL/L (98-107); CK-MB VALUE MASS 1.0 NG/ML (<3.6); CPK CREATINE PHOSPHOKINASE 66.0 U/L (46-171); CREATININE FOR GFR 1.18 MG/DL (0.70-1.30); GLOMERULAR FILTRATION RATE 86.2 (>60); MAGNESIUM LEVEL 2.3 MG/DL (1.8-2.4); MB/CK RELATIVE INDEX 1.51 (< OR =4); POTASSIUM SERUM 4.8 MMOL/L (3.5-5.1); SODIUM LEVEL 140.0 MMOL/L (136-145)
[2025-03-06] MEDS ORDERED: ISOVUE-370 76% 100 ML VIAL As Ordered ONE (22:43)
[2025-03-07] MEDS ORDERED: VANCOMYCIN HCL 1,000 MG in IV FLUID PLACE HOLDER 1 EA IV SCH (00:05)
[2025-03-07] MEDS: AMPICILLIN SOD/SULBACTAM SOD 3 GM in DEXTROSE 5% (D5W) MINI-BAG PLU 100 ML IV ONE (00:20)
[2025-03-07] MEDS: MORPHINE 2 MG/ML 1 ML VIAL IV PRN (00:52)
[2025-03-07 00:55] LABS: CK-MB VALUE MASS < 1.0 NG/ML (<3.6)
[2025-03-07] MEDS: VANCOMYCIN HCL 1,000 MG, VIAL MATE ADAPTER 1 EACH in NS 250 ML IV ONE (01:05)
[2025-03-07 01:33] LABS: CPK CREATINE PHOSPHOKINASE 54 U/L (46-171)
[2025-03-07 02:00] VITALS: BP 133/85
[2025-03-07 02:05] VITALS: TEMP 98.8; O2SAT 96
[2025-03-07] MEDS: MORPHINE 4 MG/ML 1 ML VIAL IV PRN (02:15)
== END 2025-03-07 02:20 | disposition short-term general hospital (02) ==
LOC: M ED 18:45
DX: H05.012 Cellulitis of left orbit (principal); C41.9 Malignant neoplasm of bone and articular cartilage, unspecified; R93.89 Abnormal findings on diagnostic imaging of other specified body structures; Z79.82 Long term (current) use of aspirin; Z79.899 Other long term (current) drug therapy; Z88.8 Allergy status to other drugs, medicaments and biological substances; Z91.89 Other specified personal risk factors, not elsewhere classified
CPT/HCPCS: 70450; 70487; 70491; 71045; 71260; 80048; 80076; 82550; 82553; 83690; 83735; 83880; 84484; 85025; 85610; 85730; 87040; 93005; 93041; 94760; 96365; 96367; 96375; 96376; 99285; J0295; J2405; J3373; Q9967

== ENCOUNTER → 2025-03-26 | Outpatient (REF) | payer BC ==
[2025-03-26 18:12] LABS: ALT/SGPT 47.0 U/L (7.0-40); AST/SGOT 26.0 U/L (<34); CALCIUM LEVEL 9.5 MG/DL (8.5-10.1); CARBON DIOXIDE LEVEL 26.0 MMOL/L (20-31); CHLORIDE LEVEL 105.0 MMOL/L (98-107); CREATININE FOR GFR 1.28 MG/DL (0.70-1.30); GLOMERULAR FILTRATION RATE 78.2 (>60); POTASSIUM SERUM 3.6 MMOL/L (3.5-5.1); SODIUM LEVEL 143.0 MMOL/L (136-145)
== END ==
LOC: M LABDRWAD 17:33
PROVIDERS: ATTEND Internal Medicine Infectious Disease
DX: Z79.2 Long term (current) use of antibiotics (principal)